=== PATIENT | female | born 1995 | race African-American/Black ===

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

== ENCOUNTER 2017-02-26 21:52 | Emergency (ER) | payer MEDICAID, OTHER ==
[2017-02-26 22:16] VITALS: BP 144/94
[2017-02-26] MEDS ORDERED: Lactated Ringers 1,000 ML IV ONE (22:33)
--- NOTE | 2017-02-26 22:33 | EDM.PDOC ---
ED HPI GENERAL MEDICAL PROBLEM - General Chief Complaint: Abdominal Pain Stated Complaint: FELL/5 MO PREGNENT Time Seen by Provider: 02/26/17 22:25 - History of Present Illness INITIAL COMMENTS - FREE TEXT/NARRATIVE: 22-year-old female nearly 20 weeks gestation fell yesterday. Patient fell yesterday evening going up some steps landing on her right side she has a worsening right-sided abdominal and back pain. She's used 2 or 3 doses of Tylenol without much success. Prior to the fall by several weeks the patient has been developing some intermittent nausea and vomiting. This is not associated with any abdominal pain diarrhea or constipation. Patient denies any other injuries associated with this fall she has not had any difficulty with ambulation. Patient has not had any breathing difficulty shortness of breath she denies any burning or frequency with urination no unusual discharge. She has not had any cramping or contractions. Right Abdomen Pain Score (Numeric/FACES): 6 - Related Data Allergies Allergy/AdvReac Type Severity Reaction Status Date / Time aspirin Allergy Anaphylactic Verified 12/30/16 21:00 Shock pollen extracts Allergy Swelling Verified 12/30/16 21:00 Home Meds: Home Meds Albuterol Sulfate [Proair Hfa] 8.5 gm IH Q6H PRN 04/12/16 [History] EPINEPHrine [Epipen] 0.3 mg IM ASDIRECTED 04/12/16 [History] Montelukast [Singulair] 10 mg PO BEDTIME PRN 04/12/16 [History] Loratadine [Claritin] 10 mg PO DAILY PRN 06/18/16 [History] Ondansetron [Zofran ODT] 4 mg PO Q6H #10 tab.dis 09/06/16 [Rx] PNV95/Ferrous Fumarate/FA [ Tablet] 1 tab PO DAILY 02/26/17 [History] Ondansetron [Zofran ODT] 4 mg PO Q8H PRN #10 tab.dis 02/27/17 [Rx] Past Medical History HEENT History: Reports: Allergic Rhinitis Cardiovascular History: Reports: Cardiomyopathy Other Cardiovascular History: pt states "I have a bad heart." Respiratory History: Reports: Asthma Other Respiratory History: Allergies Gastrointestinal History: Reports: GERD 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: Psychiatric History: Reports: ADD Endocrine/Metabolic History: Reports: Obesity/BMI 30+ - Past Surgical History Cardiovascular Surgical History: Reports: Other (See Below) GI Surgical History: Reports: Cholecystectomy, EGD Female Surgical History: Reports: None Social & Family History - Tobacco Use Smoking Status *Q: Never Smoker Years of Tobacco use: 2 Packs/Tins Daily: 0.2 Used Tobacco, but Quit: No Second Hand Smoke Exposure: Yes - Caffeine Use Caffeine Use: Reports: None Other Caffeine Use: rarely - Alcohol Use Days Per Week of Alcohol Use: 1 (occasionally) - Recreational Drug Use Recreational Drug Use: No Drug Use in Last 12 Months: No - Living Situation & Occupation Living situation: Reports: Single, with Significant Other Occupation: Unemployed ED ROS GENERAL - Review of Systems Review Of Systems: See Below Constitutional: Reports: No Symptoms HEENT: Reports: No Symptoms Respiratory: Reports: No Symptoms Cardiovascular: Reports: No Symptoms GI/Abdominal: Reports: Abdominal Pain (Right-sided), Nausea, Vomiting. Denies: Constipation, Diarrhea : Reports: No Symptoms. Denies: Dysuria, Flank Pain, Hematuria, Pain, Urgency , Urinary Retention Musculoskeletal: Reports: Back Pain Neurological: Reports: No Symptoms ED EXAM, GENERAL - Physical Exam Exam: See Below Exam Limited By: No Limitations General Appearance: Alert, No Apparent Distress Head: Atraumatic, Normocephalic Neck: Normal Inspection, Supple, Non-Tender, Full Range of Motion Respiratory/Chest: No Respiratory Distress, Lungs Clear, Normal Breath Sounds Cardiovascular: Regular Rate, Rhythm, No Edema, No Murmur GI/Abdominal: Normal Bowel Sounds, Soft, Other (She has no discomfort between the suprapubic area and the umbilicus she has some vague right-sided discomfort seems to be more abdominal wall no rebound or guarding noted) Back Exam: Normal Inspection, Other (Has some vague right and left sided discomfort no vertebral tenderness) Extremities: Normal Inspection, No Pedal Edema Neurological: Alert, Oriented, Normal Cognition Course - Vital Signs Last Recorded V/S: Last Vital Signs Temp 36.7 C 02/26/17 22:13 Pulse 85 02/26/17 22:13 Resp 20 02/26/17 22:13 BP 144/94 H 02/26/17 22:13 Pulse Ox 100 02/26/17 22:13 - Orders/Labs/Meds Labs: Laboratory Tests 02/26/17 02/26/17 02/26/17 Range/Units 21:15 22:50 22:50 WBC 7.13 (3.98-10.04) K/mm3 RBC 3.70 L (3.98-5.22) M/mm3 Hgb 11.9 (11.2-15.7) gm/L Hct 34.5 (34.1-44.9) % MCV 93.2 (79.4-94.8) fl MCH 32.2 (25.6-32.2) pg MCHC 34.5 (32.2-35.5) g/dl RDW Std Deviation 45.0 (36.4-46.3) fL Plt Count 297 (182-369) K/mm3 MPV 9.9 (9.4-12.3) fl Neutrophils % (Manual) 54 (40-60) % Band Neutrophils % 0 (0-10) % Lymphocytes % (Manual) 28 (20-40) % Atypical Lymphs % 3 % Monocytes % (Manual) 10 (2-10) % Eosinophils % (Manual) 4 (0.7-5.8) % Basophils % (Manual) 0 L (0.1-1.2) Metamyelocytes % 1 Platelet Estimate Adequate Plt Morphology Comment See note Poikilocytosis 1+ slight Anisocytosis 1+ slight Microcytosis 1+ slight Macrocytosis 1+ slight Tear Drop Cells 1+ slight RBC Morph Comment Abnormal Sodium 137 (136-145) mEq/L Potassium 4.0 (3.5-5.1) mEq/L Chloride 105 (98-107) mEq/L Carbon Dioxide 25 (21-32) mEq/L Anion Gap 11.0 (5-15) BUN 7 (7-18) mg/dL Creatinine 0.6 (0.55-1.02) mg/dL Est Cr Clr Drug Dosing 112.86 mL/min Estimated GFR (MDRD) > 60 (>60) mL/min BUN/Creatinine Ratio 11.7 L (14-18) Glucose 90 (74-106) mg/dL Calcium 8.8 (8.5-10.1) mg/dL Total Bilirubin 0.3 (0.2-1.0) mg/dL AST 35 (15-37) U/L ALT 39 (14-59) U/L Alkaline Phosphatase 70 (46-116) U/L Total Protein 6.7 (6.4-8.2) g/dl Albumin 3.0 L (3.4-5.0) g/dl Globulin 3.7 gm/dL Albumin/Globulin Ratio 0.8 L (1-2) Urine Color Yellow (Yellow) Urine Appearance Clear (Clear) Urine pH 7.0 (5.0-8.0) Ur Specific [place] 1.025 (1.005-1.030) Urine Protein 1+ H (Negative) Urine Glucose (UA) Negative (Negative) Urine Ketones Negative (Negative) Urine Occult Blood Negative (Negative) Urine Nitrite Negative (Negative) Urine Bilirubin Negative (Negative) Urine Urobilinogen 2.0 H (0.2-1.0) Ur Leukocyte Esterase Trace H (Negative) Urine RBC 0-5 (0-5) /hpf Urine WBC 0-5 (0-5) /hpf Ur Epithelial Cells 5-10 H (0-5) /hpf Urine Bacteria Many H (FEW) /hpf Urine Mucus Many H (FEW) /hpf Meds: Medications Discontinued Medications Generic Name Dose Route Start Last Admin Trade Name Job PRN Reason Stop Dose Admin Lactated Ringer's 1,000 mls @ 999 mls/hr 02/26/17 22:33 02/26/17 23:11 Ringers, Lactated IV 02/26/17 23:33 999 mls/hr .BOLUS ONE Administration Ondansetron HCl 4 mg 02/26/17 23:09 02/26/17 23:12 Zofran IVPUSH 02/26/17 23:10 4 mg ONETIME STA Administration Ondansetron HCl Confirm 02/26/17 23:11 02/26/17 23:12 Zofran Administered 02/26/17 23:12 Not Given Dose 4 mg .ROUTE .STK-MED ONE - Re-Assessments/Exams Free Text/Narrative Re-Assessment/Exam: 02/27/17 00:07 Patient is doing better she's received a liter of fluid some Zofran. She's been asked to continue with the Tylenol as needed for pain she's been using it 3 times a day however it doesn't workup at well for her. It doesn't she's having some intermittent nausea and vomiting developing a little late her than one would expect. We'll discharge with a few Zofran. Departure - Departure Time of Disposition: 00:08 Disposition: Home, Self-Care 01 Clinical Impression: Back pain affecting in second trimester, Right sided abdominal pain - Discharge Information Prescriptions: Ondansetron [Zofran ODT] 4 mg PO Q8H PRN #10 tab.dis PRN Reason: Nausea/Vomiting Referrals: Elba Siegel MD [Primary Care Provider] - Forms: ED Department Discharge Additional Instructions: Return to the emergency room with any questions or problems. Push lots of fluids. You've been given some Zofran as needed for nausea use only as needed as directed. Tylenol no more than 4 daily doses of 2 pills per dose. Followup with Dr. Siegel early this next week.
[2017-02-26] MEDS ORDERED: Ondansetron 4 MG/2 ML SDV IVPUSH STA (23:09)
[2017-02-26] MEDS ORDERED: Ondansetron 4 MG/2 ML SDV ONE (23:11)
== END 2017-02-27 00:15 | disposition home or self-care (01) ==
LOC: SUPCPDRO 21:52 → JD.ED 21:52
DX: O99.89 Other specified diseases and conditions complicating pregnancy, childbirth and the puerperium (principal); M54.9 Dorsalgia, unspecified; R10.9 Unspecified abdominal pain; O99.512 Diseases of the respiratory system complicating pregnancy, second trimester; J45.909 Unspecified asthma, uncomplicated; O99.612 Diseases of the digestive system complicating pregnancy, second trimester; K21.9 Gastro-esophageal reflux disease without esophagitis; O99.212 Obesity complicating pregnancy, second trimester; E66.9 Obesity, unspecified; Z90.49 Acquired absence of other specified parts of digestive tract; Z79.899 Other long term (current) drug therapy; Z88.6 Allergy status to analgesic agent; Z3A.20 20 weeks gestation of pregnancy
CPT/HCPCS: 36415; 80053; 81001; 85025; 96361; 96374; 99284; J2405; J7120

== ENCOUNTER 2017-06-17 15:22 | Inpatient (IN) | payer MEDICAID ==
[2017-06-17] MEDS ORDERED: Acetaminophen 325 MG Tab PO PRN (19:07)
[2017-06-17] MEDS ORDERED: Famotidine 20 MG Tab PO PRN (19:07)
[2017-06-17] MEDS ORDERED: Calcium Carbonate 500 MG Tab.Chew PO PRN (19:07)
[2017-06-17] MEDS ORDERED: Ondansetron 4 MG/2 ML SDV IVPUSH PRN ×2 (19:07→23:42)
[2017-06-17] MEDS ORDERED: Sodium Chloride 0.9% 10 ML Syringe FLUSH PRN ×2 (19:07→19:18)
[2017-06-17] MEDS ORDERED: Calcium Gluconate 10% 1 GM/10 ML SDV IV PRN (19:12)
[2017-06-17] MEDS ORDERED: Magnesium Sulfate/Water 4 GM in Premix Bag 1 BAG IV ONE (19:12)
[2017-06-17] MEDS ORDERED: Magnesium Sulfate/Water 2 GM in Premix Bag 1 BAG IV SCH (19:15)
[2017-06-17] MEDS ORDERED: Oxytocin/Lactated Ringers 10 UNIT/1,000 ML BAG IV SCH (19:15)
[2017-06-17] MEDS ORDERED: Lactated Ringers 1,000 ML IV SCH (19:15)
[2017-06-17] MEDS ORDERED: Misoprostol 100 MCG Tab VAG PRN (19:18)
--- NOTE | 2017-06-17 19:21 | PCM.SN ---
- Free Text/Narrative Note: Antoni&Catarino Noland is a 22 [id number] female who was admitted for induction of labor in the setting of preeclampsia with severe features with severe range blood pressures requiring IV medication treatment on 06/17/2017 at 35 2/7 gestational age. She had an LUZ MARINA of 07/21/2017 by 6 week ultrasound. Cervix is 1/ 40/-3/medium/anterior with a Matos score of 5. She is having irregular [place] contractions. She denies any leaking of fluid or vaginal bleeding. She reports good movement course: Her first visit was 12/01/2016 at 6 weeks gestational age. Her weight increased from 244 lbs to 249 lbs, for a gain of 5 lbs. she had her first elevated pressures at 34 weeks gestational age and was given betamethasone 2 at that time.. Her 1 hr GTT was normal at 90. lab testing: Her blood is type B positive, antibody screen negative. Initial hemoglobin was 12.8 g/dl and platelets were 321. She is rubella immune. Hepatitis B and HIV were negative. Second trimester showed hemoglobin of 13.1 g/ dl and platelets of 267. She had a ultrasound done on 06/10/17 that showed possible IUGR with before meals less than the 10th percentile at 8%, estimated weight was 2090 g (40%), AUA was 33 weeks 4 days. GBS testing not collected prior to this visit. Allergies: Aspirin - anaphylaxis; Percocet with minimal pain relief Medications: vitamins, Flonase, Advair Past medical history: GERD, asthma that she reports is well controlled and has not required use of rescue inhaler during the last month, history of cardiac problem as a child and was told she would "grow out of it" and is not being followed by cardiology at this time Past surgical history: Cholecystectomy in 09/06/2016, LUZ MARINA 07/14/2016, heart biopsy 2004 Family history: Asthma in mother and father, cardiomyopathy in mother, maternal great grandmother with stomach cancer, sickle cell anemia in cousin, sickle cell trait in maternal uncle, throat cancer in maternal grandmother and maternal grandfather, brother and 2 sisters healthy Social history: Denies use of alcohol or drugs. Reports that she has previous history of cigarette use but stopped once she was . ROS: No other concerns other than nausea. Skin: negative HEENT: negative Lungs: no shortness of breath Cardiovascular: no chest pain Breasts: changes associated with only GI: negative : changes associated with Neuro: negative Musculoskeletal: negative Physical exam: Vitals Pulse 67, blood pressure 182/109, respiratory rate 22, temperature 36.8 Celsius General: patient is a well-developed, obese, pleasant female in active labor with contractions. She is uncomfortable due to the contractions. Skin: dry, warm, no lesions HEENT: neck is normal Lungs: Unlabored breathing Cardiovascular: Regular pulse Breast exam: deferred Abdomen: Gravid, estimated weight 6 pounds by Serge but difficult to assess due to body habitus Musculoskeletal: normal Laboratory Results - last 24 hr 06/17/17 06/17/17 06/17/17 Range/Units 15:45 17:09 17:09 WBC 8.24 (3.98-10.04) K/mm3 RBC 4.45 (3.98-5.22) M/mm3 Hgb 14.3 (11.2-15.7) gm/L Hct 41.1 (34.1-44.9) % MCV 92.4 (79.4-94.8) fl MCH 32.1 (25.6-32.2) pg MCHC 34.8 (32.2-35.5) g/dl RDW Std Deviation 43.7 (36.4-46.3) fL Plt Count 212 (182-369) K/mm3 MPV 10.6 (9.4-12.3) fl Neut % (Auto) 57.1 (34.0-71.1) % Lymph % (Auto) 29.4 (19.3-51.7) % [place] % (Auto) 12.7 H (4.7-12.5) % Eos % (Auto) 0.2 L (0.7-5.8) Baso % (Auto) 0.2 (0.1-1.2) % Neut # (Auto) 4.70 (1.56-6.13) K/mm3 Lymph # (Auto) 2.42 (1.18-3.74) K/mm3 [place] # (Auto) 1.05 H (0.24-0.36) K/mm3 Eos # (Auto) 0.02 L (0.04-0.36) K/mm3 Baso # (Auto) 0.02 (0.01-0.08) K/mm3 BUN 7 (7-18) mg/dL Creatinine 0.7 (0.55-1.02) mg/dL Est Cr Clr Drug Dosing 96.74 mL/min Estimated GFR (MDRD) > 60 (>60) mL/min Uric Acid 5.5 (2.6-6.0) mg/dL AST 18 (15-37) U/L ALT 23 (14-59) U/L Lactate Dehydrogenase 250 H (81-234) U/L Urine Color Yellow (Yellow) Urine Appearance Cloudy H (Clear) Urine pH 6.5 (5.0-8.0) Ur Specific [place] 1.020 (1.005-1.030) Urine Protein 1+ H (Negative) Urine Glucose (UA) Negative (Negative) Urine Ketones Negative (Negative) Urine Occult Blood Negative (Negative) Urine Nitrite Negative (Negative) Urine Bilirubin Negative (Negative) Urine Urobilinogen 0.2 (0.2-1.0) Ur Leukocyte Esterase 2+ H (Negative) Urine RBC 0-5 (0-5) /hpf Urine WBC 5-10 H (0-5) /hpf Ur Epithelial Cells 0-5 (0-5) /hpf Urine Bacteria Moderate H (FEW) /hpf Urine Mucus Few (FEW) /hpf Assessment: 1. 35 2/7 week intrauterine with preeclampsia with severe features based on severe range blood pressures requiring IV treatment, elevated LDH, 1+ protein on urinalysis, suspect patient becoming hemoconcentrated based on hemoglobin of 14.3 when compared to her second trimester hemoglobin that was 12 2. GBS unknown 3. Epidural for pain 4. Elevated blood pressures throughout monitoring into severe range and will treat as needed 5. Patient has previously received betamethasone approximately 1 week ago, do not plan for rescue course at this time. Plan: 1. Anticipate normal vaginal delivery 2. Continue close monitoring of blood pressures. Will treat if having severe sustained blood pressures of greater than 160 systolic or 110 diastolic that are 15 minutes apart. 3. Start patient on magnesium IV 4 g bolus then 2 g IV per hour for seizure prophylaxis 4. Epidural when necessary for pain 5. Routine care 6. GBS swab collected and will plan to treat for possible GBS if results unavailable or if positive. Patient would be indicated for treatment due to prematurity if results unavailable. Job Babb MD 8:05 PM 06/17/17
[2017-06-17] MEDS ORDERED: Magnesium Sulfate/Water 40 GM/1,000 ML BAG IV SCH (19:30)
[2017-06-17] MEDS: Labetalol 100 MG/20 ML MDV IVPUSH ONE ×2 (19:34→19:50)
[2017-06-17] MEDS ORDERED: Misoprostol 25 MCG (1/4 of 100 MCG) Tab ONE (20:19)
[2017-06-17] MEDS: Misoprostol 25 MCG (1/4 of 100 MCG) Tab VAG PRN (20:27)
--- NOTE | 2017-06-17 23:36 | PCM.PREANE ---
Preanesthetic Assessment - Procedure Proposed Procedure: Labor Epidural - Anesthesia/Transfusion/Family Hx Anesthesia History: Prior Anesthesia Without Reaction Family History of Anesthesia Reaction: No Transfusion History: No Prior Transfusion(s) Type of Transfusion Reactions: Reports: Unknown - Review of Systems General: No Symptoms Pulmonary: No Symptoms Cardiovascular: Other (PIH) Gastrointestinal: Other (GERD) Neurological: No Symptoms Other: Reports: None - Physical Assessment NPO Status Date: 06/17/17 NPO Status Time: 23:00 Pulse: 85 O2 Sat by Pulse Oximetry: 98 Respiratory Rate: 22 Blood Pressure: 160/106 Vital Signs: Last Vital Signs Temp 36.8 C 06/17/17 16:07 Pulse 85 06/17/17 23:01 Resp 22 H 06/17/17 16:07 BP 160/106 H 06/17/17 23:01 Pulse Ox 98 06/17/17 16:07 Height: 1.55 m Weight: 105.687 kg ASA Class: 2 Mental Status: Alert & Oriented x3 Thyro-Mental Finger Breadths: 3 Mouth Opening Finger Breadths: 3 ROM/Head Extension: Full Lungs: Clear to Auscultation, Normal Respiratory Effort Cardiovascular: Regular Rate, Regular Rhythm - Lab Values: Laboratory Last Values WBC 8.24 K/mm3 (3.98-10.04) 06/17/17 17:09 RBC 4.45 M/mm3 (3.98-5.22) 06/17/17 17:09 Hgb 14.3 gm/L (11.2-15.7) 06/17/17 17:09 Hct 41.1 % (34.1-44.9) 06/17/17 17:09 MCV 92.4 fl (79.4-94.8) 06/17/17 17:09 MCH 32.1 pg (25.6-32.2) 06/17/17 17:09 MCHC 34.8 g/dl (32.2-35.5) 06/17/17 17:09 RDW Std Deviation 43.7 fL (36.4-46.3) 06/17/17 17:09 Plt Count 212 K/mm3 (182-369) 06/17/17 17:09 MPV 10.6 fl (9.4-12.3) 06/17/17 17:09 Neut % (Auto) 57.1 % (34.0-71.1) 06/17/17 17:09 Lymph % (Auto) 29.4 % (19.3-51.7) 06/17/17 17:09 [place] % (Auto) 12.7 % (4.7-12.5) H 06/17/17 17:09 Eos % (Auto) 0.2 (0.7-5.8) L 06/17/17 17:09 Baso % (Auto) 0.2 % (0.1-1.2) 06/17/17 17:09 Neut # (Auto) 4.70 K/mm3 (1.56-6.13) 06/17/17 17:09 Lymph # (Auto) 2.42 K/mm3 (1.18-3.74) 06/17/17 17:09 [place] # (Auto) 1.05 K/mm3 (0.24-0.36) H 06/17/17 17:09 Eos # (Auto) 0.02 K/mm3 (0.04-0.36) L 06/17/17 17:09 Baso # (Auto) 0.02 K/mm3 (0.01-0.08) 06/17/17 17:09 BUN 7 mg/dL (7-18) 06/17/17 17:09 Creatinine 0.7 mg/dL (0.55-1.02) 06/17/17 17:09 Est Cr Clr Drug Dosing 96.74 mL/min 06/17/17 17:09 Estimated GFR (MDRD) > 60 mL/min (>60) 06/17/17 17:09 Uric Acid 5.5 mg/dL (2.6-6.0) 06/17/17 17:09 AST 18 U/L (15-37) 06/17/17 17:09 ALT 23 U/L (14-59) 06/17/17 17:09 Lactate Dehydrogenase 250 U/L (81-234) H 06/17/17 17:09 Urine Color Yellow (Yellow) 06/17/17 15:45 Urine Appearance Cloudy (Clear) H 06/17/17 15:45 Urine pH 6.5 (5.0-8.0) 06/17/17 15:45 Ur Specific [place] 1.020 (1.005-1.030) 06/17/17 15:45 Urine Protein 1+ (Negative) H 06/17/17 15:45 Urine Glucose (UA) Negative (Negative) 06/17/17 15:45 Urine Ketones Negative (Negative) 06/17/17 15:45 Urine Occult Blood Negative (Negative) 06/17/17 15:45 Urine Nitrite Negative (Negative) 06/17/17 15:45 Urine Bilirubin Negative (Negative) 06/17/17 15:45 Urine Urobilinogen 0.2 (0.2-1.0) 06/17/17 15:45 Ur Leukocyte Esterase 2+ (Negative) H 06/17/17 15:45 Urine RBC 0-5 /hpf (0-5) 06/17/17 15:45 Urine WBC 5-10 /hpf (0-5) H 06/17/17 15:45 Ur Epithelial Cells 0-5 /hpf (0-5) 06/17/17 15:45 Urine Bacteria Moderate /hpf (FEW) H 06/17/17 15:45 Urine Mucus Few /hpf (FEW) 06/17/17 15:45 - Allergies Allergies/Adverse Reactions: Allergies Allergy/AdvReac Type Severity Reaction Status Date / Time aspirin Allergy Anaphylactic Verified 12/30/16 21:00 Shock pollen extracts Allergy Swelling Verified 12/30/16 21:00 - Blood Blood Available: No Product(s) Available: None - Anesthesia Plan Pre-Op Medication Ordered: None - Acknowledgements Anesthesia Type Planned: Epidural Pt an Appropriate Candidate for the Planned Anesthesia: Yes Alternatives and Risks of Anesthesia Discussed w Pt/Guardian: Yes Pt/Guardian Understands and Agrees with Anesthesia Plan: Yes PreAnesthesia Questionnaire HEENT History: Reports: Allergic Rhinitis Cardiovascular History: Reports: Cardiomyopathy Other Cardiovascular History: pt states "I have a bad heart." Respiratory History: Reports: Asthma Other Respiratory History: Allergies Gastrointestinal History: Reports: GERD 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: Psychiatric History: Reports: ADD Endocrine/Metabolic History: Reports: Obesity/BMI 30+ - Past Surgical History Cardiovascular Surgical History: Reports: Other (See Below) GI Surgical History: Reports: Cholecystectomy, EGD Female Surgical History: Reports: None - SUBSTANCE USE Smoking Status *Q: Never Smoker Tobacco Use Within Last Twelve Months: Cigarettes Second Hand Smoke Exposure: Yes Days Per Week of Alcohol Use: 1 (occasionally) Recreational Drug Use History: No - HOME MEDS Home Medications: Home Meds Albuterol Sulfate [Proair Hfa] 8.5 gm IH Q6H PRN 04/12/16 [History] EPINEPHrine [Epipen] 0.3 mg IM ASDIRECTED 04/12/16 [History] Montelukast [Singulair] 10 mg PO BEDTIME PRN 04/12/16 [History] Loratadine [Claritin] 10 mg PO DAILY PRN 06/18/16 [History] Ondansetron [Zofran ODT] 4 mg PO Q6H #10 tab.dis 09/06/16 [Rx] PNV95/Ferrous Fumarate/FA [ Tablet] 1 tab PO DAILY 02/26/17 [History] Ondansetron [Zofran ODT] 4 mg PO Q8H PRN #10 tab.dis 02/27/17 [Rx] Capsaicin 0.035 applic TOP ASDIRECTED PRN 06/17/17 [History] Cyclobenzaprine [Flexeril] 10 mg PO TID PRN 06/17/17 [History] Esomeprazole Magnesium [Nexium] 40 mg PO DAILY 06/17/17 [History] Fluticasone Propionate [Flonase] 1 gm NASBOTH DAILY 06/17/17 [History] Fluticasone/Salmeterol [Advair Diskus 100-50] 1 puff PO BID PRN 06/17/17 [ History] Mag Hydrox/Al Hydrox/Simeth [Maalox Maximum Strength Susp] 06/17/17 [History] Nystatin 1 applic TOP TID PRN 06/17/17 [History] Triamcinolone Acetonide [IJD: Triamcinolone Acetonide 0.1% Crm] 0.025 applic TOP ASDIRECTED PRN 06/17/17 [History] - CURRENT (IN HOUSE) MEDS Current Meds: Current Medications Acetaminophen (Tylenol) 650 mg PO Q6H PRN PRN Reason: Pain (Mild 1-3) and fever Calcium Carbonate/Glycine (Tums) 1,000 mg PO Q2H PRN PRN Reason: Indigestion Calcium Gluconate (Calcium Gluconate) 1 gm IV ASDIRECTED PRN PRN Reason: respiratory distress Famotidine (Pepcid) 20 mg PO Q12H PRN PRN Reason: Heartburn Last Admin: 06/17/17 20:14 Dose: 20 mg Lactated Ringer's (Ringers, Lactated) 1,000 mls @ 100 mls/hr IV ASDIRECTED [facility] Oxytocin/Lactated Ringer's (Pitocin In Lr 10 Units/1,000 Ml) 10 unit in 1,000 mls @ 100 mls/hr IV .CONTINUOUS [facility] Magnesium Sulfate (Magnesium Sulfate 40 Gm In Water 1000 Ml) 40 gm in 1,000 mls @ 50 mls/hr IV ASDIRECTED [facility] Last Admin: 06/17/17 20:14 Dose: 50 mls/hr Misoprostol (Cytotec) 25 mcg VAG Q4H PRN PRN Reason: cervical ripening Last Admin: 06/17/17 20:27 Dose: 25 mcg Ondansetron HCl (Zofran) 4 mg IVPUSH Q4H PRN PRN Reason: Nausea/Vomiting Sodium Chloride (Saline Flush) 10 ml FLUSH ASDIRECTED PRN PRN Reason: Keep Vein Open Sodium Chloride (Saline Flush) 10 ml FLUSH ASDIRECTED PRN PRN Reason: Keep Vein Open Discontinued Medications Magnesium Sulfate 4 gm/ Premix 100 mls @ 300 mls/hr IV ONETIME ONE Stop: 06/17/17 19:31 Last Admin: 06/17/17 19:45 Dose: 300 mls/hr Magnesium Sulfate 2 gm/ Premix 50 mls @ 300 mls/hr IV Q1H [facility] Last Admin: 06/17/17 21:59 Dose: Not Given Labetalol HCl (Normodyne) 20 mg IVPUSH ONETIME ONE PRN Reason: Protocol Stop: 06/17/17 19:08 Last Admin: 06/17/17 19:50 Dose: 20 mg Misoprostol (Cytotec) 25 mcg VAG Q4H PRN PRN Reason: cervical ripening Misoprostol (Cytotec) Confirm Administered Dose 25 mcg .ROUTE .STK-MED ONE Stop: 06/17/17 20:20 Last Admin: 06/17/17 21:56 Dose: Not Given
[2017-06-17] MEDS ORDERED: fentaNYL 100 MCG/2 ML SDV EPIDUR PRN (23:42)
[2017-06-17] MEDS ORDERED: diphenhydrAMINE 50 MG/ML SDV IVPUSH PRN (23:42)
[2017-06-17] MEDS ORDERED: Bupivacaine/fentaNYL/NS 100 ML Bag EPIDUR SCH (23:45)
[2017-06-18] MEDS ORDERED: Pneumococcal Polyvalent-23 Vaccine 0.5 ML SDV IM ONE (00:07)
[2017-06-18] MEDS ORDERED: FLU Vacc QS 2017-18 (6mos UP)/PF 60 MCG/0.5 ML Syringe IM ONE (00:15)
[2017-06-18] MEDS: Misoprostol 25 MCG (1/4 of 100 MCG) Tab VAG PRN ×2 (00:48→04:56)
[2017-06-18] MEDS ORDERED: Labetalol 100 MG/20 ML MDV IVPUSH ONE ×5 (05:21→16:32)
[2017-06-18] MEDS ORDERED: NIFEdipine 30 MG Tab.ER PO SCH (05:30)
[2017-06-18] MEDS ORDERED: Oxytocin/Lactated Ringers 10 UNIT/1,000 ML BAG IV SCH ×2 (08:30→15:43)
[2017-06-18] MEDS ORDERED: Bupivacaine 0.5% 30 ML SDV ONE (12:23)
[2017-06-18] MEDS ORDERED: ceFAZolin 2 GM in Premix Bag 1 BAG IV ONE (12:27)
[2017-06-18] MEDS ORDERED: Citric Acid/Sodium Citrate Solution 30 ML Cup PO ONE (12:27)
[2017-06-18] MEDS ORDERED: Metoclopramide 10 MG/2 ML SDV IVPUSH ONE (12:27)
[2017-06-18] MEDS ORDERED: Sodium Chloride 0.9% 10 ML Syringe FLUSH PRN ×2 (12:27→15:43)
[2017-06-18] MEDS ORDERED: Lactated Ringers 1,000 ML IV SCH ×3 (12:30→20:30)
--- NOTE | 2017-06-18 12:39 | PCM.PNLD ---
Labor Progress Note - VS & Meds Vital Signs: Last Vital Signs Temp 36.8 C 06/17/17 16:07 Pulse 80 06/18/17 05:57 Resp 22 H 06/17/17 23:36 BP 163/103 H 06/18/17 05:57 Pulse Ox 98 06/17/17 23:36 Active Medications: Current Medications Acetaminophen (Tylenol) 650 mg PO Q6H PRN PRN Reason: Pain (Mild 1-3) and fever Calcium Carbonate/Glycine (Tums) 1,000 mg PO Q2H PRN PRN Reason: Indigestion Calcium Gluconate (Calcium Gluconate) 1 gm IV ASDIRECTED PRN PRN Reason: respiratory distress Diphenhydramine HCl (Benadryl) 25 mg IVPUSH Q6H PRN PRN Reason: Pruritis Famotidine (Pepcid) 20 mg PO Q12H PRN PRN Reason: Heartburn Last Admin: 06/17/17 20:14 Dose: 20 mg Fentanyl (Sublimaze) 100 mcg EPIDUR Q3H PRN PRN Reason: Pain Last Admin: 06/18/17 11:02 Dose: 100 mcg Fentanyl/Bupivacaine HCl (Fentanyl/Bupivacaine/Ns 2 Mcg-0.125% 100 Ml) 100 ml EPIDUR ASDIRECTED [facility]IA DOLORES Last Admin: 06/18/17 11:03 Dose: 100 ml Lactated Ringer's (Ringers, Lactated) 1,000 mls @ 100 mls/hr IV ASDIRECTED [facility] DOLORES Last Infusion: 06/18/17 11:18 Dose: 200 mls/hr Oxytocin/Lactated Ringer's (Pitocin In Lr 10 Units/1,000 Ml) 10 unit in 1,000 mls @ 100 mls/hr IV .CONTINUOUS [facility] Magnesium Sulfate (Magnesium Sulfate 40 Gm In Water 1000 Ml) 40 gm in 1,000 mls @ 50 mls/hr IV ASDIRECTED MARIA DOLORES Last Admin: 06/17/17 20:14 Dose: 50 mls/hr Oxytocin/Lactated Ringer's (Pitocin In Lr 10 Units/1,000 Ml) 10 unit in 1,000 mls @ 12 mls/hr IV TITRATE MARIA DOLORES; 2 MUNITS/MIN PRN Reason: Protocol Last Titration: 06/18/17 11:22 Dose: 0 munits/min, 0 mls/hr Nifedipine (Procardia Xl) 30 mg PO DAILY MARIA DOLORES Last Admin: 06/18/17 05:33 Dose: 30 mg Ondansetron HCl (Zofran) 4 mg IVPUSH Q4H PRN PRN Reason: Nausea/Vomiting Ondansetron HCl (Zofran) 4 mg IVPUSH ONETIME PRN PRN Reason: Nausea/Vomiting Sodium Chloride (Saline Flush) 10 ml FLUSH ASDIRECTED PRN PRN Reason: Keep Vein Open Sodium Chloride (Saline Flush) 10 ml FLUSH ASDIRECTED PRN PRN Reason: Keep Vein Open Discontinued Medications Magnesium Sulfate 4 gm/ Premix 100 mls @ 300 mls/hr IV ONETIME ONE Stop: 06/17/17 19:31 Last Admin: 06/17/17 19:45 Dose: 300 mls/hr Magnesium Sulfate 2 gm/ Premix 50 mls @ 300 mls/hr IV Q1H [facility] Last Admin: 06/17/17 21:59 Dose: Not Given Labetalol HCl (Normodyne) 20 mg IVPUSH ONETIME ONE PRN Reason: Protocol Stop: 06/17/17 19:08 Last Admin: 06/17/17 19:50 Dose: 20 mg Labetalol HCl (Normodyne) 20 mg IVPUSH ONETIME ONE PRN Reason: Protocol Stop: 06/18/17 05:22 Last Admin: 06/18/17 05:29 Dose: 20 mg Labetalol HCl (Normodyne) 40 mg IVPUSH ONETIME ONE PRN Reason: Protocol Stop: 06/18/17 05:55 Last Admin: 06/18/17 05:57 Dose: 40 mg Labetalol HCl (Normodyne) 20 mg IVPUSH ONETIME ONE PRN Reason: Protocol Stop: 06/18/17 10:25 Misoprostol (Cytotec) 25 mcg VAG Q4H PRN PRN Reason: cervical ripening Misoprostol (Cytotec) Confirm Administered Dose 25 mcg .ROUTE .STK-MED ONE Stop: 06/17/17 20:20 Last Admin: 06/17/17 21:56 Dose: Not Given Misoprostol (Cytotec) 25 mcg VAG Q4H PRN PRN Reason: cervical ripening Last Admin: 06/18/17 04:56 Dose: 25 mcg Morphine Sulfate (Duramorph Pf) Confirm Administered Dose 10 mg .ROUTE .STK-MED ONE Stop: 06/18/17 12:42 Ondansetron HCl (Zofran) Confirm Administered Dose 4 mg .ROUTE .STK-MED ONE Stop: 06/18/17 12:42 Oxytocin (Pitocin) Confirm Administered Dose 10 unit .ROUTE .STK-MED ONE Stop: 06/18/17 12:42 Pneumococcal Polyvalent Vaccine (Pneumovax 23) 0.5 ml IM .ONCE ONE Stop: 06/18/17 00:08 - Uterine Contractions Uterine Monitoring Mode: IUPC Contraction Frequency (min): 2 Contraction Intensity: Strong Uterine Resting Tone: Soft - Monitoring Monitor Mode: External Ultrasound Heart Rate (FHR) Baseline: 120 Heart Rate (FHR) Variability: Minimal (0-5 bpm) Accelerations: Present, 15x15 Decelerations: Late, Recurrent (>50% x 20 min) Strip Review: Category III - Vaginal Exam Dilation (cm): 3 Effacement (Percent): 80 Station: -2 Cervical Position: Anterior Sterile Vaginal Exam Performed By: Job Babb - Labor Progress (Free Text) Labor Progress: Patient with recurrent late decelerations on monitoring after placement of the IUPC and minimal variability. Patient is remote from delivery as a primigravida with a cervical exam of 3/80/-2. Discussed these findings with the patient and gave recommendation that we should move towards urgent delivery and that in her case this would be a section. Discussed the risks and benefits of a section including bleeding, possibly requiring a blood transfusion, infection, and injury to surrounding organs or infant. Patient states understanding and desires to proceed with section. Consents signed and patient prepped for section. Type and screen ordered. Patient to be NPO. Job Babb MD 12:39 PM 06/18/17
[2017-06-18] MEDS ORDERED: Ondansetron 4 MG/2 ML SDV ONE (12:41)
[2017-06-18] MEDS ORDERED: Morphine PF 10 MG/10 ML SDV ONE (12:41)
[2017-06-18] MEDS ORDERED: Oxytocin 10 Units/1 ML SDV ONE ×2 (12:41→13:32)
[2017-06-18] MEDS ORDERED: Lidocaine 2% with EPINEPHrine 1:200,000 20 ML SDV ONE (12:44)
[2017-06-18] MEDS ORDERED: ceFAZolin 1 GM Vial ONE (12:45)
[2017-06-18] MEDS ORDERED: Meperidine PF 50 MG/ML Syringe IVPUSH PRN (13:43)
[2017-06-18] MEDS ORDERED: diphenhydrAMINE 50 MG/ML SDV IVPUSH PRN (13:43)
[2017-06-18] MEDS ORDERED: Ondansetron 4 MG/2 ML SDV IVPUSH PRN (13:43)
--- NOTE | 2017-06-18 14:14 | PCM.POSTAN ---
POST ANESTHESIA ASSESSMENT - MENTAL STATUS Mental Status: Alert, Oriented - VITAL SIGNS Pulse Rate: 68 SaO2: 100 Resp Rate: 20 Blood Pressure: 129/86 Temperature: 36.6 C - RESPIRATORY Respiratory Status: Respiratory Rate WNL, Airway Patent, O2 Saturation Stable, Supplemental Oxygen - CARDIOVASCULAR CV Status: Pulse Rate WNL, Blood Pressure Stable - GASTROINTESTINAL GI Status: No Symptoms - PAIN Pain Score: 0 - POST OP HYDRATION Hydration Status: Adequate & Stable
[2017-06-18] MEDS: fentaNYL 100 MCG/2 ML SDV IVPUSH PRN ×3 (14:25→15:00)
--- NOTE | 2017-06-18 15:07 | PCM.OPNOTE ---
- General Post-Op/Procedure Note Date of Surgery/Procedure: 06/18/17 Operative Procedure(s): Primary section with double layer closure of hysterotomy Findings: Bimanual infant delivered in vertex position at 1320 on 06/18/17. Weight of 4 lbs. 7 oz. Apgars of 8 and 8. Overall normal-appearing placenta. Uterus, tubes and ovaries normal appearing. Pre Op Diagnosis: Nonreassuring heart tones in the setting of recurrent late decelerations with history of preeclampsia with severe features Post-Op Diagnosis: Same Anesthesia Technique: Epidural Primary Surgeon: Job Babb Anesthesia Provider: Jaquan Munoz Farmworker: Vinny Cary Pathology: Placenta sent for pathology Fluid Replacement, Intraop: 800 Output, Urine Amount: 100 EBL in mLs: 700 Complications: None Condition: Good Free Text/Narrative:: Intake & Output 06/17/17 06/18/17 06/18/17 22:59 06:59 14:59 Intake Total 360 Output Total 1800 750 Balance -1800 -390 Procedure in Detail: The patient was seen in labor and delivery room 4 and discussed the findings on monitoring that showed recurrent late decelerations and discussed with her that due to her being remote from delivery with her cervix dilated only to 3 cm and this being her first that the best course of action would be to proceed with section. The risks, benefits and complications were discussed with the patient. The patient desired to proceed with section , appropriate surgical consents were signed. The patient was taken to operating room 1, identified as Nuzhat Garcia and the procedure verified as section. A Time Out was held and the above information confirmed. The patient was prepped and draped in the usual sterile manner with a leftward tilt. A Calderon catheter was inserted. After epidural anesthesia was found to be adequate, a Pfannenstiel skin incision was made and carried down through the subcutaneous tissue to the fascia with the scapel. A fascial incision was made and extended transversely with Hicks scissors. The superior aspect of the fascia was grasped with Yodit clamps and tented upwards, the fascia was from the underlying rectus muscle bluntly and sharply with Hicks scissors. Attention was then turned to the inferior aspect of the fascia in similar fashion and the rectus muscle was dissected off bluntly and sharply with Hicks scissors. The peritoneum was identified and entered bluntly. The bladder blade was inserted and the lower uterine segment was identified. A low transverse uterine incision was made sharply with a scalpel and extended laterally bluntly. The 's head was brought to the uterine incision, the bladder blade was removed and the was delivered atraumatically. A live male was delivered in vertex position at 1320, wt of 4 lbs. 7 oz., APGARS 8 & 8. The nose and mouth were suctioned with bulb suction, cord was clamped and cut and was transferred to the awaiting chili powder mixer, Dr. Kowalski. The placenta was removed intact and appeared normal with a three vessel cord. The uterus was exteriorized. The uterine incision was closed with a running locked suture of 0 vicryl. A second suture of 0 Vicryl was used to obtain excellent hemostasis. The uterus, tubes and ovaries appeared normal. The uterus was returned into the abdominal cavity. The hysterotomy was noted to remain hemostatic inside the abdominal cavity. The fascia was noted to be hemostatic and the fascia was then reapproximated with running sutures of 1 PDS. The subcutaneous tissue was then closed with a running suture of 2-0 chromic. The skin was reapproximated with 4-0 Monocryl and covered with a Prineo dressing. Instrument, sponge, and needle counts were correct prior to the abdominal closure and at the conclusion of the case. Job Babb M.D. 3:06 PM 06/18/17
[2017-06-18] MEDS ORDERED: Aluminum Hydroxide/Magnesium Hydroxide/Simethicone Susp 30 ML Cup PO PRN (15:43)
[2017-06-18] MEDS ORDERED: Calcium Gluconate 10% 1 GM/10 ML SDV IV PRN (15:43)
[2017-06-18] MEDS ORDERED: Ondansetron 4 MG/2 ML SDV IV PRN (15:43)
[2017-06-18] MEDS ORDERED: Naloxone 0.4 MG/ML SDV IVPUSH PRN (15:43)
[2017-06-18] MEDS ORDERED: Magnesium Hydroxide 400 MG/5 ML Susp 30 ML Cup PO PRN (15:43)
[2017-06-18] MEDS ORDERED: Lanolin 100% Cream 7 GM Tube TOP PRN (15:43)
[2017-06-18] MEDS ORDERED: Morphine 4 MG/ML Syringe IVPUSH PRN (15:43)
[2017-06-18] MEDS ORDERED: ePHEDrine 50 MG/ML SDV IVPUSH PRN (15:43)
[2017-06-18] MEDS ORDERED: Magnesium Sulfate/Water 2 GM in Premix Bag 1 BAG IV SCH (15:43)
[2017-06-18] MEDS ORDERED: Montelukast 10 MG Tab PO PRN (15:43)
[2017-06-18] MEDS ORDERED: Formoterol/Mometasone 200-5 MCG 8.8 GM Inhaler IH PRN (15:43)
[2017-06-18] MEDS ORDERED: Cyclobenzaprine 10 MG Tab PO PRN (15:43)
[2017-06-18] MEDS ORDERED: Acetaminophen/HYDROcodone 325-5 MG Tab PO PRN (15:43)
[2017-06-18] MEDS ORDERED: Famotidine 20 MG Tab PO PRN (15:43)
[2017-06-18] MEDS ORDERED: Albuterol 6.7 GM Inhaler INH PRN (15:43)
[2017-06-18] MEDS ORDERED: Magnesium Sulfate/Water 40 GM/1,000 ML BAG IV SCH (16:45)
[2017-06-18] MEDS: Simethicone 80 MG Tab.Chew PO SCH ×2 (19:46→23:48)
[2017-06-18] MEDS: diphenhydrAMINE 50 MG/ML SDV IVPUSH PRN (20:02)
[2017-06-18] MEDS ORDERED: Bupivacaine 0.25% 10 ML SDV ONE (22:22)
[2017-06-19] MEDS: Acetaminophen/HYDROcodone 325-5 MG Tab PO PRN ×4 (02:28→19:44)
[2017-06-19] MEDS: Prenatal Multivitamin with Calcium/Folic Acid/Iron Tab PO SCH (08:10)
[2017-06-19] MEDS: Simethicone 80 MG Tab.Chew PO SCH ×3 (08:10→19:30)
[2017-06-19] MEDS: diphenhydrAMINE 50 MG/ML SDV IVPUSH PRN (10:43)
--- NOTE | 2017-06-19 10:52 | PCM.SN ---
- Free Text/Narrative Note: note Nuzhat is postoperative day #1 from emergent section for nonreassuring heart tones in the setting of recurrent late decelerations and remote from delivery with preeclampsia with severe features by elevated blood pressures requiring IV treatment. She is overall doing well. She reports that her pain is being moderately controlled with [place]. She is unable to take ibuprofen due to an allergy. She reports minimal vaginal bleeding. Tolerated small amount of a regular diet but began having epigastric pain that resolved after eating. She has a Calderon catheter in place. Denies passing flatus. She is breast-feeding with minimal amount of difficulty. Denies any bleeding from the incision. Ambulated this morning with minimal difficulty but was moving very slowly. Objective Temp: 36.6 Heart rate: 60s-90s (most recent 99) Blood pressure: 120s-170s/70s-110s (Most recent 153/88) Respiratory rate: 15-22 (most recent 18) O2 sat 97% on room air Gen.: No acute distress, alert and oriented Lungs: Clear to auscultation bilaterally Heart: Regular rate and rhythm Abdomen: Soft, minimal appropriate tenderness, nondistended, fundus is at the umbilicus, firm and nontender, incision healing well with Prineo dressing in place, small amount of blood on left side of incision, no purulent discharge, no erythema or tenderness Extremities: 2+ edema in lower extremities to knees bilaterally, 2+ bilateral biceps reflexes Assessment/plan 22-year-old status post emergent section for nonreassuring heart tones postoperative day #1 with recurrence with severe features continuing on magnesium until 24 hours status post delivery 1. Routine postoperative care 2. Continue [place] with when necessary IV medications for pain control 3. Continue magnesium sulfate IV until 1320 today for seizure prophylaxis, continue to check blood pressures every hour while on magnesium. Once discontinued and made space vital signs out to every 4 hours or as needed 4. Continue assistance with breast-feeding as needed 5. Encourage ambulation 6. Will change famotidine to scheduled twice a day and add pantoprazole for acid reflux, patient reports that she was taking medication for acid reflux until about a month ago when she ran out of her medication 7. Plan for patient to be discharged home likely on postop day #3 or 4 Job Babb M.D. 10:33 AM 06/19/17
[2017-06-19] MEDS: Pantoprazole 40 MG Tab.CR PO SCH (11:40)
[2017-06-19] MEDS: NIFEdipine 30 MG Tab.ER PO SCH (11:40)
[2017-06-19] MEDS ORDERED: guaiFENesin/Dextromethorphan 100-10 MG/5 ML Soln 5 ML Cup PO PRN (14:41)
--- NOTE | 2017-06-19 20:57 | PCM48HPAN ---
Post Anesthesia Note - EVALUATION WITHIN 48HRS OF ANESTHETIC Vital Signs in Normal Range: Yes Patient Participated in Evaluation: Yes Respiratory Function Stable: Yes Airway Patent: Yes Cardiovascular Function Stable: Yes Hydration Status Stable: Yes Pain Control Satisfactory: Yes Nausea and Vomiting Control Satisfactory: Yes Mental Status Recovered: Yes
[2017-06-19] MEDS ORDERED: Lactated Ringers 1,000 ML IV ONE (21:17)
[2017-06-20] MEDS: Acetaminophen/HYDROcodone 325-5 MG Tab PO PRN ×2 (00:23→12:12)
[2017-06-20] MEDS: Docusate Sodium 100 MG Cap PO PRN ×3 (00:25→21:00)
[2017-06-20] MEDS: Simethicone 80 MG Tab.Chew PO SCH ×5 (00:26→21:01)
[2017-06-20] MEDS ORDERED: Lactated Ringers 1,000 ML IV SCH (01:00)
[2017-06-20] MEDS: Famotidine 20 MG Tab PO SCH ×3 (08:38→21:00)
[2017-06-20] MEDS: NIFEdipine 30 MG Tab.ER PO SCH (09:38)
--- NOTE | 2017-06-20 09:46 | PCM.SN ---
- Free Text/Narrative Note: note Nuzhat is postoperative day #2 from emergent section for nonreassuring heart tones in the setting of recurrent late decelerations and remote from delivery with preeclampsia with severe features by elevated blood pressures requiring IV treatment. She is overall doing well and improving from yesterday. She reports that her pain is being controlled with [place] and reports that she is just having some abdominal soreness around the incision. She is unable to take ibuprofen due to an allergy. She reports minimal vaginal bleeding. Tolerating a regular diet. She is voiding without difficulty. Denies passing flatus but feels like her bowels are starting to move. She is breast-feeding without difficulty. Denies any bleeding from the incision. Emulating without difficulty. Objective Temp: 36.7C Heart rate: 80s-120s (most recent 88) Blood pressure: 120s-150s/80s-100s (Most recent 157/83) Respiratory rate: 16-24 O2 sat 98% on room air Gen.: No acute distress, alert and oriented Lungs: Clear to auscultation bilaterally Heart: Regular rate and rhythm Abdomen: Soft, minimal appropriate tenderness, nondistended, fundus is at the umbilicus, firm and nontender, incision healing well with Prineo dressing in place, no bleeding or discharge, no erythema or tenderness Extremities: 1+ edema in lower extremities to knees bilaterally, 2+ bilateral patellar reflexes Assessment/plan 22-year-old status post emergent section for nonreassuring heart tones postoperative day #2 with recurrence with severe features s/p magnesium until 24 hours status post delivery * Routine postoperative care * Continue [place] with when necessary IV medications for pain control * S/p magnesium sulfate IV for 24 hours . Continue close monitoring of blood pressures while admitted. * Patient with continued elevated blood pressures on nifedipine 30 mg XL, will transition patient to labetalol 300 mg twice a day due to her mild tachycardia overnight and heart rates into the 80s and 90s * Continue with breast-feeding * Patient with mild tachycardia overnight up to the 120s, resolved with 1 L fluid bolus, suspect that this was due to dehydration and patient was continued on IV fluids throughout the night. Patient to increase fluid intake throughout the day today * Continue famotidine to scheduled twice a day and pantoprazole daily for acid reflux * Plan for patient to be discharged home on postop day #3 or 4 Job Babb M.D. 10:18 AM 06/20/17
[2017-06-20] MEDS: Labetalol 100 MG Tab PO SCH ×2 (09:53→21:01)
[2017-06-20] MEDS: Prenatal Multivitamin with Calcium/Folic Acid/Iron Tab PO SCH (09:53)
[2017-06-20] MEDS: Pantoprazole 40 MG Tab.CR PO SCH (09:53)
[2017-06-21] MEDS: Simethicone 80 MG Tab.Chew PO SCH (09:16)
[2017-06-21] MEDS: Labetalol 100 MG Tab PO SCH (09:16)
[2017-06-21] MEDS: Prenatal Multivitamin with Calcium/Folic Acid/Iron Tab PO SCH (09:16)
[2017-06-21] MEDS: Pantoprazole 40 MG Tab.CR PO SCH (09:16)
[2017-06-21] MEDS: Famotidine 20 MG Tab PO SCH (09:18)
--- NOTE | 2017-06-21 10:45 | PCM.SN ---
- Free Text/Narrative Note: note Nuzhat is postoperative day #3 from emergent section for nonreassuring heart tones in the setting of recurrent late decelerations and remote from delivery with preeclampsia with severe features by elevated blood pressures requiring IV treatment. She is overall doing well. She reports that her pain is being controlled with [place]. She is unable to take ibuprofen due to an allergy. She reports minimal vaginal bleeding. Tolerating a regular diet. She is voiding without difficulty. Passing flatus. She is breast-feeding without difficulty. Denies any bleeding from the incision. Ambulating without difficulty. Objective Temp: 37.2C Heart rate: 80s-100s (most recent 84) Blood pressure: 120s-150s/60s-90s (Most recent 139/76) Respiratory rate: 14-18 O2 sat 97% on room air Gen.: No acute distress, alert and oriented Lungs: Clear to auscultation bilaterally Heart: Regular rate and rhythm Abdomen: Soft, minimal appropriate tenderness, nondistended, fundus at the umbilicus, firm and nontender, incision healing well with Prineo dressing in place, no bleeding or discharge, no erythema or tenderness Extremities: 1+ edema in lower extremities to ankels bilaterally, 2+ bilateral biceps reflexes Assessment/plan 22-year-old status post emergent section for nonreassuring heart tones postoperative day #3 with recurrence with severe features s/p magnesium until 24 hours status post delivery * Routine postoperative care * Continue [place] with when necessary IV medications for pain control * S/p magnesium sulfate IV for 24 hours . Continue close monitoring of blood pressures while admitted. * Continue labetalol 300 mg twice a day * Continue with breast-feeding * Continue famotidine to scheduled twice a day and pantoprazole daily for acid reflux * Patient to be discharged home today Job Babb M.D. 10:41 AM 06/21/17
--- NOTE | 2017-06-21 10:56 | PCM.DCSUM1 ---
Discharge Summary - Hospital Course Free Text/Narrative:: The patient was seen in labor and delivery room 4 and discussed the findings on monitoring that showed recurrent late decelerations and discussed with her that due to her being remote from delivery with her cervix dilated only to 3 cm and this being her first that the best course of action would be to proceed with section. The risks, benefits and complications were discussed with the patient. The patient desired to proceed with section , appropriate surgical consents were signed. The patient was taken to operating room 1, identified as Nuzhat Garcia and the procedure verified as section. A Time Out was held and the above information confirmed. The patient was prepped and draped in the usual sterile manner with a leftward tilt. A Calderon catheter was inserted. After epidural anesthesia was found to be adequate, a Pfannenstiel skin incision was made and carried down through the subcutaneous tissue to the fascia with the scapel. A fascial incision was made and extended transversely with Hciks scissors. The superior aspect of the fascia was grasped with Yodit clamps and tented upwards, the fascia was from the underlying rectus muscle bluntly and sharply with Hicks scissors. Attention was then turned to the inferior aspect of the fascia in similar fashion and the rectus muscle was dissected off bluntly and sharply with Hicks scissors. The peritoneum was identified and entered bluntly. The bladder blade was inserted and the lower uterine segment was identified. A low transverse uterine incision was made sharply with a scalpel and extended laterally bluntly. The 's head was brought to the uterine incision, the bladder blade was removed and the infant was delivered atraumatically. A live male was delivered in vertex position at 1320, wt of 4 lbs. 7 oz., APGARS 8 & 8. The nose and mouth were suctioned with bulb suction, cord was clamped and cut and was transferred to the awaiting wellness ambassador, Dr. Kowalski. The placenta was removed intact and appeared normal with a three vessel cord. The uterus was exteriorized. The uterine incision was closed with a running locked suture of 0 vicryl. A second suture of 0 Vicryl was used to obtain excellent hemostasis. The uterus, tubes and ovaries appeared normal. The uterus was returned into the abdominal cavity. The hysterotomy was noted to remain hemostatic inside the abdominal cavity. The fascia was noted to be hemostatic and the fascia was then reapproximated with running sutures of 1 PDS. The subcutaneous tissue was then closed with a running suture of 2-0 chromic. The skin was reapproximated with 4-0 Monocryl and covered with a Prineo dressing. HPI Initial Comments: The patient was seen in labor and delivery room 4 and discussed the findings on monitoring that showed recurrent late decelerations and discussed with her that due to her being remote from delivery with her cervix dilated only to 3 cm and this being her first that the best course of action would be to proceed with section. The risks, benefits and complications were discussed with the patient. The patient desired to proceed with section , appropriate surgical consents were signed. The patient was taken to operating room 1, identified as Nuzhat Garcia and the procedure verified as section. A Time Out was held and the above information confirmed. The patient was prepped and draped in the usual sterile manner with a leftward tilt. A Calderon catheter was inserted. After epidural anesthesia was found to be adequate, a Pfannenstiel skin incision was made and carried down through the subcutaneous tissue to the fascia with the scapel. A fascial incision was made and extended transversely with Hicks scissors. The superior aspect of the fascia was grasped with Yodit clamps and tented upwards, the fascia was from the underlying rectus muscle bluntly and sharply with Hicks scissors. Attention was then turned to the inferior aspect of the fascia in similar fashion and the rectus muscle was dissected off bluntly and sharply with Hicks scissors. The peritoneum was identified and entered bluntly. The bladder blade was inserted and the lower uterine segment was identified. A low transverse uterine incision was made sharply with a scalpel and extended laterally bluntly. The infant's head was brought to the uterine incision, the bladder blade was removed and the was delivered atraumatically. A live male was delivered in vertex position at 1320, wt of 4 lbs. 7 oz., APGARS 8 & 8. The nose and mouth were suctioned with bulb suction, cord was clamped and cut and infant was transferred to the awaiting wellness ambassador, Dr. Kowalski. The placenta was removed intact and appeared normal with a three vessel cord. The uterus was exteriorized. The uterine incision was closed with a running locked suture of 0 vicryl. A second suture of 0 Vicryl was used to obtain excellent hemostasis. The uterus, tubes and ovaries appeared normal. The uterus was returned into the abdominal cavity. The hysterotomy was noted to remain hemostatic inside the abdominal cavity. The fascia was noted to be hemostatic and the fascia was then reapproximated with running sutures of 1 PDS. The subcutaneous tissue was then closed with a running suture of 2-0 chromic. The skin was reapproximated with 4-0 Monocryl and covered with a Prineo dressing. Brief History: The patient was seen in labor and delivery room 4 and discussed the findings on monitoring that showed recurrent late decelerations and discussed with her that due to her being remote from delivery with her cervix dilated only to 3 cm and this being her first that the best course of action would be to proceed with section. The risks, benefits and complications were discussed with the patient. The patient desired to proceed with section, appropriate surgical consents were signed. The patient was taken to operating room 1, identified as Nuzhat Garcia and the procedure verified as section. A Time Out was held and the above information confirmed. The patient was prepped and draped in the usual sterile manner with a leftward tilt. A Calderon catheter was inserted. After epidural anesthesia was found to be adequate, a Pfannenstiel skin incision was made and carried down through the subcutaneous tissue to the fascia with the scapel. A fascial incision was made and extended transversely with Hicks scissors. The superior aspect of the fascia was grasped with Yodit clamps and tented upwards , the fascia was from the underlying rectus muscle bluntly and sharply with Hicks scissors. Attention was then turned to the inferior aspect of the fascia in similar fashion and the rectus muscle was dissected off bluntly and sharply with Hicks scissors. The peritoneum was identified and entered bluntly. The bladder blade was inserted and the lower uterine segment was identified. A low transverse uterine incision was made sharply with a scalpel and extended laterally bluntly. The 's head was brought to the uterine incision, the bladder blade was removed and the was delivered atraumatically. A live male infant was delivered in vertex position at 1320, wt of 4 lbs. 7 oz., APGARS 8 & 8. The nose and mouth were suctioned with bulb suction, cord was clamped and cut and was transferred to the awaiting wellness ambassador, Dr. Kowalski. The placenta was removed intact and appeared normal with a three vessel cord. The uterus was exteriorized. The uterine incision was closed with a running locked suture of 0 vicryl. A second suture of 0 Vicryl was used to obtain excellent hemostasis. The uterus, tubes and ovaries appeared normal. The uterus was returned into the abdominal cavity. The hysterotomy was noted to remain hemostatic inside the abdominal cavity. The fascia was noted to be hemostatic and the fascia was then reapproximated with running sutures of 1 PDS. The subcutaneous tissue was then closed with a running suture of 2-0 chromic. The skin was reapproximated with 4-0 Monocryl and covered with a Prineo dressing. - Discharge Data Discharge Date: 06/21/17 Discharge Disposition: Home, Self-Care 01 Condition: Good - Discharge Diagnosis/Problem(s) (1) delivery due to maternal disorder, delivered, current hospitalization SNOMED Code(s): 867159852 ICD Code: O99.89 - OTH DISEASES AND CONDITIONS COMPL PREG/CHLDBRTH; O82 - ENCOUNTER FOR DELIVERY WITHOUT INDICATION Status: Acute Current Visit: Yes (2) Severe pre-eclampsia SNOMED Code(s): 18822621 ICD Code: O14.10 - SEVERE PRE-ECLAMPSIA, UNSPECIFIED TRIMESTER Status: Acute Current Visit: Yes (3) Obesity affecting SNOMED Code(s): 827164632392 ICD Code: O99.210 - OBESITY COMPLICATING , UNSPECIFIED TRIMESTER Status: Acute Current Visit: Yes (4) GERD (gastroesophageal reflux disease) SNOMED Code(s): 991357086 ICD Code: K21.9 - GASTRO-ESOPHAGEAL REFLUX DISEASE WITHOUT ESOPHAGITIS Status: Acute Current Visit: No - Patient Summary/Data Operative Procedure(s) Performed: Primary section with double layer closure of hysterotomy Complications: None Consults: Consultations 06/18/17 15:43 Consult to Case Management [CONS] Routine Hospital Course: The patient was seen in labor and delivery room 4 and discussed the findings on monitoring that showed recurrent late decelerations and discussed with her that due to her being remote from delivery with her cervix dilated only to 3 cm and this being her first that the best course of action would be to proceed with section. The risks, benefits and complications were discussed with the patient. The patient desired to proceed with section , appropriate surgical consents were signed. The patient was taken to operating room 1, identified as Nuzhat Garcia and the procedure verified as section. A Time Out was held and the above information confirmed. The patient was prepped and draped in the usual sterile manner with a leftward tilt. A Calderon catheter was inserted. After epidural anesthesia was found to be adequate, a Pfannenstiel skin incision was made and carried down through the subcutaneous tissue to the fascia with the scapel. A fascial incision was made and extended transversely with Hicks scissors. The superior aspect of the fascia was grasped with Yodit clamps and tented upwards, the fascia was from the underlying rectus muscle bluntly and sharply with Hicks scissors. Attention was then turned to the inferior aspect of the fascia in similar fashion and the rectus muscle was dissected off bluntly and sharply with Hikcs scissors. The peritoneum was identified and entered bluntly. The bladder blade was inserted and the lower uterine segment was identified. A low transverse uterine incision was made sharply with a scalpel and extended laterally bluntly. The infant's head was brought to the uterine incision, the bladder blade was removed and the infant was delivered atraumatically. A live male infant was delivered in vertex position at 1320, wt of 4 lbs. 7 oz., APGARS 8 & 8. The nose and mouth were suctioned with bulb suction, cord was clamped and cut and infant was transferred to the awaiting wellness ambassador, Dr. Kowalski. The placenta was removed intact and appeared normal with a three vessel cord. The uterus was exteriorized. The uterine incision was closed with a running locked suture of 0 vicryl. A second suture of 0 Vicryl was used to obtain excellent hemostasis. The uterus, tubes and ovaries appeared normal. The uterus was returned into the abdominal cavity. The hysterotomy was noted to remain hemostatic inside the abdominal cavity. The fascia was noted to be hemostatic and the fascia was then reapproximated with running sutures of 1 PDS. The subcutaneous tissue was then closed with a running suture of 2-0 chromic. The skin was reapproximated with 4-0 Monocryl and covered with a Prineo dressing. She was continued on magnesium for 24 hours postdelivery for seizure prophylaxis. On postop day #1 she continued to have elevated blood pressures into the 150s to 160s/80s to 110s. She was started on nifedipine 30 mg XL for blood pressure control. On postoperative day #2 she continued to have several elevated blood pressures with tachycardia and she was changed from nifedipine to labetalol 300 mg by mouth twice a day. She was able to get much better control of her blood pressures on this dose. On postop day #1 she was doing well and meeting all postop milestones including tolerating regular diet, ambulating without difficulty, and her pain was able to be controlled with oral medications. She was breast-feeding without difficulty. She was able to void without difficulty on postop day #1 after her catheter was removed. She was passing flatus on postoperative day #3. She desired to be discharged home on postop day #3. She will follow-up in the clinic for a blood pressure check on 06/24/17, or 06/27/17. She will follow up with Dr. Siegel's office for her postop check in 2 weeks. - Patient Instructions Diet: Regular Diet as Tolerated Activity: As Tolerated, No Lifting Over 25 Pounds Driving: Do Not Drive (While on narcotic pain medications) Showering/Bathing: May Shower Wound/Incision Care: Keep Operative Site/Wound Site Clean and Dry Notify Provider of: Fever, Increased Pain, Swelling and Redness, Drainage, Nausea and/or Vomiting - Discharge Plan Prescriptions/Med Rec: Acetaminophen/HYDROcodone [[place] 325-5 MG] 1 - 2 tab PO Q6H PRN #30 tablet PRN Reason: Pain Famotidine [Pepcid] 20 mg PO BID #60 tablet Labetalol [Normodyne] 300 mg PO BID #60 tablet Home Medications: Home Meds Albuterol Sulfate [Proair Hfa] 8.5 gm IH Q6H PRN 04/12/16 [History] EPINEPHrine [Epipen] 0.3 mg IM ASDIRECTED 04/12/16 [History] Montelukast [Singulair] 10 mg PO BEDTIME PRN 04/12/16 [History] Loratadine [Claritin] 10 mg PO DAILY PRN 06/18/16 [History] Ondansetron [Zofran ODT] 4 mg PO Q6H #10 tab.dis 09/06/16 [Rx] PNV95/Ferrous Fumarate/FA [ Tablet] 1 tab PO DAILY 02/26/17 [History] Capsaicin 0.035 applic TOP ASDIRECTED PRN 06/17/17 [History] Cyclobenzaprine [Flexeril] 10 mg PO TID PRN 06/17/17 [History] Esomeprazole Magnesium [Nexium] 40 mg PO DAILY 06/17/17 [History] Fluticasone Propionate [Flonase] 1 gm NASBOTH DAILY 06/17/17 [History] Fluticasone/Salmeterol [Advair Diskus 100-50] 1 puff PO BID PRN 06/17/17 [ History] Nystatin 1 applic TOP TID PRN 06/17/17 [History] Triamcinolone Acetonide [IJD: Triamcinolone Acetonide 0.1% Crm] 0.025 applic TOP ASDIRECTED PRN 06/17/17 [History] Acetaminophen/HYDROcodone [[place] 325-5 MG] 1 - 2 tab PO Q6H PRN #30 tablet 06/21 [Rx] Docusate Sodium [Colace] 100 mg PO Q12H PRN cap 06/21/17 [Rx] Famotidine [Pepcid] 20 mg PO BID #60 tablet 06/21/17 [Rx] Labetalol [Normodyne] 300 mg PO BID #60 tablet 06/21/17 [Rx] Lanolin [Lansinoh HPA] 1 applic TOP ASDIRECTED PRN tube 06/21/17 [Rx] Patient Handouts: Smoking Hazards, Hypertension During , [id number] , Delivery, Care After, Smoking Cessation, Tips for Success, Challenges and Solutions Referrals: Elba Siegel MD [Physician] - 06/27/17 11:15 am (Follow up on Tuesday () or Tuesday (06/27/17) for a blood pressure check and then follow up in 2 weeks for routine postop follow up.) - Discharge Summary/Plan Comment DC Time >30 min.: No - Patient Data Vitals - Most Recent: Last Vital Signs Temp 37.2 C 06/21/17 07:39 Pulse 84 06/21/17 09:16 Resp 16 06/21/17 07:39 BP 139/76 06/21/17 09:16 Pulse Ox 97 06/21/17 07:39 Weight - Most Recent: 105.687 kg I&O - Last 24 hours: Intake & Output 06/20/17 06/21/17 06/21/17 22:59 06:59 14:59 Intake Total 240 Balance 240 Med Orders - Current: Current Medications Hydrocodone Bitart/Acetaminophen ([place] 325-5 Mg) 1 tab PO Q4H PRN PRN Reason: Pain (moderate 4-6) Hydrocodone Bitart/Acetaminophen ([place] 325-5 Mg) 2 tab PO Q4H PRN PRN Reason: Pain (moderate 4-6) Last Admin: 06/20/17 12:12 Dose: 2 tab Al Hydroxide/Mg Hydroxide (Mag-Al Plus) 30 ml PO Q8H PRN PRN Reason: Heartburn Albuterol (Proventil Hfa) 1 - 2 gm INH Q6H PRN PRN Reason: Shortness of Breath Calcium Gluconate (Calcium Gluconate) 1 gm IV ASDIRECTED PRN PRN Reason: respiratory distress Cyclobenzaprine HCl (Flexeril) 10 mg PO TID PRN PRN Reason: Muscle Spasm Diphenhydramine HCl (Benadryl) 25 mg IVPUSH Q6H PRN PRN Reason: Itching or Nausea Last Admin: 06/19/17 10:43 Dose: 25 mg Docusate Sodium (Colace) 100 mg PO Q12H PRN PRN Reason: Constipation Last Admin: 06/20/17 21:00 Dose: 100 mg Emollient Ointment (Lansinoh Hpa) 0 gm TOP ASDIRECTED PRN PRN Reason: Sore Nipples Ephedrine Sulfate (Ephedrine Sulfate) 5 mg IVPUSH SEECOMMENT PRN PRN Reason: Other Famotidine (Pepcid) 20 mg PO BID [facility] Last Admin: 06/21/17 09:18 Dose: 20 mg Flunisolide (Nasalide Nasal [place]) 0 ml NASBOTH BID [facility] Last Admin: 06/21/17 09:18 Dose: 2 spray Guaifenesin/Phenylephrine HCl (Robitussin Dm) 10 ml PO Q4H PRN PRN Reason: Cough Last Admin: 06/19/17 16:06 Dose: 10 ml Oxytocin/Lactated Ringer's (Pitocin In Lr 10 Units/1,000 Ml) 10 unit in 1,000 mls @ 100 mls/hr IV .CONTINUOUS [facility] Lactated Ringer's (Ringers, Lactated) 1,000 mls @ 75 mls/hr IV ASDIRECTED [facility] Last Admin: 06/19/17 02:00 Dose: 75 mls/hr Lactated Ringer's (Ringers, Lactated) 1,000 mls @ 125 mls/hr IV ASDIRECTED [facility] Last Admin: 06/20/17 00:57 Dose: 125 mls/hr Labetalol HCl (Normodyne) 300 mg PO BID [facility] Last Admin: 06/21/17 09:16 Dose: 300 mg Magnesium Hydroxide (Milk Of Magnesia) 30 ml PO BEDTIME PRN PRN Reason: Constipation Mometasone Furoate/Formoterol Fumar (Dulera 200-5 Mcg) 0 puff IH BID PRN PRN Reason: shortness of breath Montelukast Sodium (Singulair) 10 mg PO BEDTIME PRN PRN Reason: Allergies Morphine Sulfate (Morphine) 4 mg IVPUSH Q2H PRN PRN Reason: Pain (severe 7-10) Naloxone HCl (Narcan) 0.1 mg IVPUSH SEECOMMENT PRN PRN Reason: Respiratory Depression Ondansetron HCl (Zofran) 4 mg IV Q4H PRN PRN Reason: Nausea/Vomiting Pantoprazole Sodium (Protonix) 40 mg PO DAILY [facility] Last Admin: 06/21/17 09:16 Dose: 40 mg Prenat Multivit/[place]/Iron/Folic Ac ( Plus Iron) 1 each PO DAILY [facility] Last Admin: 06/21/17 09:16 Dose: 1 each Simethicone (Simethicone) 80 mg PO PCBED [facility] Last Admin: 06/21/17 09:16 Dose: 80 mg Sodium Chloride (Saline Flush) 10 ml FLUSH ASDIRECTED PRN PRN Reason: Keep Vein Open Discontinued Medications Acetaminophen (Tylenol) 650 mg PO Q6H PRN PRN Reason: Pain (Mild 1-3) and fever Bupivacaine HCl (Marcaine 0.5%) Confirm Administered Dose 30 ml .ROUTE .STK-MED ONE Stop: 06/18/17 12:24 Last Admin: 06/18/17 13:15 Dose: 20 ml Calcium Carbonate/Glycine (Tums) 1,000 mg PO Q2H PRN PRN Reason: Indigestion Calcium Gluconate (Calcium Gluconate) 1 gm IV ASDIRECTED PRN PRN Reason: respiratory distress Cefazolin Sodium (Ancef) Confirm Administered Dose 2 gm .ROUTE .STK-MED ONE Stop: 06/18/17 12:46 Citric Acid/Sodium Citrate (Bicitra Solution) 30 ml PO ONETIME ONE Stop: 06/18/17 12:28 Last Admin: 06/18/17 12:46 Dose: 30 ml Diphenhydramine HCl (Benadryl) 25 mg IVPUSH Q6H PRN PRN Reason: Pruritis Diphenhydramine HCl (Benadryl) 25 mg IVPUSH Q6H PRN PRN Reason: Pruritis Famotidine (Pepcid) 20 mg PO Q12H PRN PRN Reason: Heartburn Last Admin: 06/17/17 20:14 Dose: 20 mg Famotidine (Pepcid) 20 mg PO BID PRN PRN Reason: Heartburn Fentanyl (Sublimaze) 100 mcg EPIDUR Q3H PRN PRN Reason: Pain Last Admin: 06/18/17 11:02 Dose: 100 mcg Fentanyl (Sublimaze) 50 mcg IVPUSH Q5M PRN PRN Reason: Pain Last Admin: 06/18/17 15:00 Dose: 50 mcg Fentanyl/Bupivacaine HCl (Fentanyl/Bupivacaine/Ns 2 Mcg-0.125% 100 Ml) 100 ml EPIDUR ASDIRECTED [facility] Last Admin: 06/18/17 11:03 Dose: 100 ml Lactated Ringer's (Ringers, Lactated) 1,000 mls @ 100 mls/hr IV ASDIRECTED [facility] Last Infusion: 06/18/17 11:18 Dose: 200 mls/hr Oxytocin/Lactated Ringer's (Pitocin In Lr 10 Units/1,000 Ml) 10 unit in 1,000 mls @ 100 mls/hr IV .CONTINUOUS [facility] Magnesium Sulfate 4 gm/ Premix 100 mls @ 300 mls/hr IV ONETIME ONE Stop: 06/17/17 19:31 Last Admin: 06/17/17 19:45 Dose: 300 mls/hr Magnesium Sulfate 2 gm/ Premix 50 mls @ 300 mls/hr IV Q1H [facility] Last Admin: 06/17/17 21:59 Dose: Not Given Magnesium Sulfate (Magnesium Sulfate 40 Gm In Water 1000 Ml) 40 gm in 1,000 mls @ 50 mls/hr IV ASDIRECTED [facility] Last Admin: 06/17/17 20:14 Dose: 50 mls/hr Oxytocin/Lactated Ringer's (Pitocin In Lr 10 Units/1,000 Ml) 10 unit in 1,000 mls @ 12 mls/hr IV TITRATE [facility] DOLORES; 2 MUNITS/MIN PRN Reason: Protocol Last Titration: 06/18/17 11:22 Dose: 0 munits/min, 0 mls/hr Cefazolin Sodium/Dextrose 2 gm (/ Premix) 50 mls @ 100 mls/hr IV ONETIME ONE Stop: 06/18/17 12:56 Last Admin: 06/18/17 14:02 Dose: Not Given Lactated Ringer's (Ringers, Lactated) 1,000 mls @ 125 mls/hr IV ASDIRECTED [facility] DOLOR[facility] Last Admin: 06/17/17 20:14 Dose: 75 mls/hr Lactated Ringer's (Ringers, Lactated) 1,000 mls @ 125 mls/hr IV ASDIRECTED [facility] Stop: 06/18/17 23:42 Last Admin: 06/19/17 02:42 Dose: Not Given Magnesium Sulfate 2 gm/ Premix 50 mls @ 50 mls/hr IV .CONTINUOUS [facility] Stop: 06/19/17 13:20 Magnesium Sulfate (Magnesium Sulfate 40 Gm In Water 1000 Ml) 40 gm in 1,000 mls @ 50 mls/hr IV ASDIRECTED [facility] D[facility] Stop: 06/19/17 13:20 Last Admin: 06/18/17 19:45 Dose: 50 mls/hr Lactated Ringer's (Ringers, Lactated) 1,000 mls @ 1,000 mls/hr IV .BOLUS ONE Stop: 06/19/17 22:16 Last Admin: 06/19/17 21:48 Dose: 1,000 mls/hr Labetalol HCl (Normodyne) 20 mg IVPUSH ONETIME ONE PRN Reason: Protocol Stop: 06/17/17 19:08 Last Admin: 06/17/17 19:50 Dose: 20 mg Labetalol HCl (Normodyne) 20 mg IVPUSH ONETIME ONE PRN Reason: Protocol Stop: 06/18/17 05:22 Last Admin: 06/18/17 05:29 Dose: 20 mg Labetalol HCl (Normodyne) 40 mg IVPUSH ONETIME ONE PRN Reason: Protocol Stop: 06/18/17 05:55 Last Admin: 06/18/17 05:57 Dose: 40 mg Labetalol HCl (Normodyne) 20 mg IVPUSH ONETIME ONE PRN Reason: Protocol Stop: 06/18/17 10:25 Last Admin: 06/18/17 14:01 Dose: Not Given Labetalol HCl (Normodyne) 20 mg IVPUSH ONETIME ONE PRN Reason: Protocol Stop: 06/18/17 16:16 Last Admin: 06/18/17 16:04 Dose: 20 mg Labetalol HCl (Normodyne) 40 mg IVPUSH STAT ONE PRN Reason: Protocol Stop: 06/18/17 16:33 Last Admin: 06/18/17 16:43 Dose: 40 mg Lidocaine/Epinephrine (Xylocaine-Mpf 2%-Epi 1:200,000) Confirm Administered Dose 20 ml .ROUTE .STK-MED ONE Stop: 06/18/17 12:45 Meperidine HCl (Demerol) 12.5 mg IVPUSH ONETIME PRN PRN Reason: Shivering Metoclopramide HCl (Reglan) 10 mg IVPUSH ONETIME ONE Stop: 06/18/17 12:28 Last Admin: 06/18/17 12:46 Dose: 10 mg Misoprostol (Cytotec) 25 mcg VAG Q4H PRN PRN Reason: cervical ripening Misoprostol (Cytotec) Confirm Administered Dose 25 mcg .ROUTE .STK-MED ONE Stop: 06/17/17 20:20 Last Admin: 06/17/17 21:56 Dose: Not Given Misoprostol (Cytotec) 25 mcg VAG Q4H PRN PRN Reason: cervical ripening Last Admin: 06/18/17 04:56 Dose: 25 mcg Morphine Sulfate (Duramorph Pf) Confirm Administered Dose 10 mg .ROUTE .STK-MED ONE Stop: 06/18/17 12:42 Nifedipine (Procardia Xl) 30 mg PO DAILY [facility] Last Admin: 06/18/17 05:33 Dose: 30 mg Nifedipine (Procardia Xl) 30 mg PO DAILY [facility] Last Admin: 10/02/17 09:38 Dose: Not Given Ondansetron HCl (Zofran) 4 mg IVPUSH Q4H PRN PRN Reason: Nausea/Vomiting Ondansetron HCl (Zofran) 4 mg IVPUSH ONETIME PRN PRN Reason: Nausea/Vomiting Ondansetron HCl (Zofran) Confirm Administered Dose 4 mg .ROUTE .STK-MED ONE Stop: 06/18/17 12:42 Ondansetron HCl (Zofran) 4 mg IVPUSH ONETIME PRN PRN Reason: Nausea/Vomiting Oxytocin (Pitocin) Confirm Administered Dose 10 unit .ROUTE .STK-MED ONE Stop: 06/18/17 12:42 Oxytocin (Pitocin) Confirm Administered Dose 10 unit .ROUTE .[place] ONE Stop: 06/18/17 13:33 Pneumococcal Polyvalent Vaccine (Pneumovax 23) 0.5 ml IM .ONCE ONE Stop: 06/18/17 00:08 Sodium Chloride (Saline Flush) 10 ml FLUSH ASDIRECTED PRN PRN Reason: Keep Vein Open Sodium Chloride (Saline Flush) 10 ml FLUSH ASDIRECTED PRN PRN Reason: Keep Vein Open Sodium Chloride (Saline Flush) 10 ml FLUSH ASDIRECTED PRN PRN Reason: Keep Vein Open *Q Meaningful Use (DIS) - VTE *Q VTE Criteria *Q: - Stroke *Q Stroke Criteria *Q: - AMI *Q AMI Criteria *Q:
[2017-06-21 14:05] VITALS: BP 129/88
== END 2017-06-21 13:50 | disposition home or self-care (01) | DRG 766 ==
LOC: JD.OBCHECK 15:22 → JD.OB 15:22 → JD.OBCHECK 18:00 → OBSVTOIN 06-18 13:20 → JD.OB 06-18 13:20
PROVIDERS: ADMIT Obstetrics & Gynecology; ATTEND Obstetrics & Gynecology
PROC: 10D00Z1 Extraction of Products of Conception, Low, Open Approach (ICD-10-PCS; principal; 2017-06-18)
PROC: 3E0P7GC Introduction of Other Therapeutic Substance into Female Reproductive, Via Natural or Artificial Opening (ICD-10-PCS; 2017-06-18)
PROC: 00HU33Z Insertion of Infusion Device into Spinal Canal, Percutaneous Approach (ICD-10-PCS; 2017-06-18)
PROC: 3E0R3BZ Introduction of Anesthetic Agent into Spinal Canal, Percutaneous Approach (ICD-10-PCS; 2017-06-18)
DX: O14.14 Severe pre-eclampsia complicating childbirth (principal); O99.52 Diseases of the respiratory system complicating childbirth; J45.909 Unspecified asthma, uncomplicated; O76 Abnormality in fetal heart rate and rhythm complicating labor and delivery; Z3A.35 35 weeks gestation of pregnancy; Z37.0 Single live birth; O90.89 Other complications of the puerperium, not elsewhere classified; E86.0 Dehydration; Z88.8 Allergy status to other drugs, medicaments and biological substances; Z87.891 Personal history of nicotine dependence
CPT/HCPCS: 01967; 01968; 36415; 80053; 81001; 82565; 83615; 84450; 84460; 84520; 84550; 85025; 85027; 86850; 86900; 86901; 87653; 93005; 94762; A9270-GY; J0690; J1200; J2270; J2405; J2590; J2765; J3010; J3475; J7120

== ENCOUNTER 2018-03-11 17:04 | Emergency (ER) | payer MEDICAID ==
[2018-03-11 17:32] VITALS: BP 122/49
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
--- NOTE | 2018-03-13 07:48 | CR ---
Left wrist: Four views of the left wrist were obtained. Comparison: No prior left wrist exam. Joint spaces are preserved. No fracture, dislocation or other bony abnormality is seen. Impression: 1. No abnormality is identified on left wrist exam. Diagnostic code #1
== END 2018-03-11 18:15 | disposition home or self-care (01) ==
LOC: JD.ED 17:04
DX: S61.253A Open bite of left middle finger without damage to nail, initial encounter (principal); S63.602A Unspecified sprain of left thumb, initial encounter; K21.9 Gastro-esophageal reflux disease without esophagitis; Z88.8 Allergy status to other drugs, medicaments and biological substances; Z88.6 Allergy status to analgesic agent; Z79.899 Other long term (current) drug therapy; W54.0XXA Bitten by dog, initial encounter
CPT/HCPCS: 73110-26-LT; 73110-LT; 99283

== ENCOUNTER 2018-06-11 21:50 | Emergency (ER) | payer MEDICAID ==
--- NOTE | 2018-06-11 22:30 | EDM.PDOC ---
<Cosmo Bower - Last Filed: 06/12/18 00:33> ED HPI GENERAL MEDICAL PROBLEM - General Chief Complaint: Chest Pain Stated Complaint: CHEST PAINS Time Seen by Provider: 06/11/18 22:14 - Related Data Allergies Allergy/AdvReac Type Severity Reaction Status Date / Time aspirin Allergy Anaphylactic Verified 06/18/17 00:13 Shock ibuprofen Allergy Anaphylactic Verified 06/18/17 17:44 Shock pollen extracts Allergy Swelling Verified 06/18/17 00:13 soybeans Allergy Other Uncoded 06/18/17 00:13 Home Meds: Home Meds Albuterol Sulfate [Proair Hfa] 8.5 gm IH Q6H PRN 04/12/16 [History] EPINEPHrine [Epipen] 0.3 mg IM ASDIRECTED 04/12/16 [History] Montelukast [Singulair] 10 mg PO BEDTIME PRN 04/12/16 [History] Loratadine [Claritin] 10 mg PO DAILY PRN 06/18/16 [History] Cyclobenzaprine [Flexeril] 10 mg PO TID PRN 06/17/17 [History] Esomeprazole Magnesium [Nexium] 40 mg PO DAILY 06/17/17 [History] Fluticasone/Salmeterol [Advair Diskus 100-50] 1 puff PO BID PRN 06/17/17 [ History] Nystatin 1 applic TOP TID PRN 06/17/17 [History] Triamcinolone Acetonide [IJD: Triamcinolone Acetonide 0.1% Crm] 0.025 applic TOP ASDIRECTED PRN 06/17/17 [History] Acetaminophen/HYDROcodone [[place] 325-5 MG] 1 - 2 tab PO Q6H PRN #30 tablet 06/21 [Rx] Famotidine [Pepcid] 20 mg PO BID #60 tablet 06/21/17 [Rx] Labetalol [Normodyne] 300 mg PO BID #60 tablet 06/21/17 [Rx] Naproxen [Naprosyn] 500 mg PO Q12HR #20 tab 03/11/18 [Rx] Ondansetron [Zofran ODT] 4 mg PO Q6H PRN 06/11/18 [History] Course - Vital Signs Last Recorded V/S: Last Vital Signs Temp 98.4 F 06/12/18 00:32 Pulse 89 06/12/18 00:32 Resp 18 06/12/18 00:32 BP 134/74 06/12/18 00:32 Pulse Ox 98 06/12/18 00:32 - Orders/Labs/Meds Orders: Active Orders 24 hr Category Date Time Status EKG Documentation Completion [RC] STAT Care 06/11/18 22:15 Active Sodium Chloride 0.9% [Normal Saline] 100 ml Med 06/12/18 01:00 Active IV ASDIRECTED Medication Orders Sodium Chloride (Normal Saline) 100 mls @ 4 mls/sec IV ASDIRECTED MARIA DOLORES Labs: Laboratory Tests 06/11/18 06/11/18 06/11/18 Range/Units 22:45 22:45 22:45 WBC 5.26 (3.98-10.04) K/mm3 RBC 4.52 (3.98-5.22) M/mm3 Hgb 13.9 (11.2-15.7) gm/L Hct 42.4 (34.1-44.9) % MCV 93.8 (79.4-94.8) fl MCH 30.8 (25.6-32.2) pg MCHC 32.8 (32.2-35.5) g/dl RDW Std Deviation 43.6 (36.4-46.3) fL Plt Count 323 (182-369) K/mm3 MPV 9.6 (9.4-12.3) fl Neutrophils % (Manual) 49 (40-60) % Band Neutrophils % 0 (0-10) % Lymphocytes % (Manual) 42 H (20-40) % Atypical Lymphs % 2 % Monocytes % (Manual) 4 (2-10) % Eosinophils % (Manual) 0 L (0.7-5.8) % Basophils % (Manual) 3 H (0.1-1.2) Platelet Estimate Adequate Plt Morphology Comment Normal RBC Morph Comment Normal D-Dimer, Quantitative 0.86 H (0.19-0.50) mg/L Sodium 139 (136-145) mEq/L Potassium 3.6 (3.5-5.1) mEq/L Chloride 105 (98-107) mEq/L Carbon Dioxide 26 (21-32) mEq/L Anion Gap 11.6 (5-15) BUN 13 (7-18) mg/dL Creatinine 0.9 (0.55-1.02) mg/dL Est Cr Clr Drug Dosing 74.61 mL/min Estimated GFR (MDRD) > 60 (>60) mL/min BUN/Creatinine Ratio 14.4 (14-18) Glucose 94 (74-106) mg/dL Calcium 9.1 (8.5-10.1) mg/dL Total Bilirubin 0.5 (0.2-1.0) mg/dL AST 29 (15-37) U/L ALT 29 (14-59) U/L Alkaline Phosphatase 108 (46-116) U/L C-Reactive Protein 2.0 H* (<1.0) mg/dL Total Protein 7.7 (6.4-8.2) g/dl Albumin 3.9 (3.4-5.0) g/dl Globulin 3.8 gm/dL Albumin/Globulin Ratio 1.0 (1-2) HCG, Qual (NEGATIVE) 06/11/18 Range/Units 22:45 WBC (3.98-10.04) K/mm3 RBC (3.98-5.22) M/mm3 Hgb (11.2-15.7) gm/L Hct (34.1-44.9) % MCV (79.4-94.8) fl MCH (25.6-32.2) pg MCHC (32.2-35.5) g/dl RDW Std Deviation (36.4-46.3) fL Plt Count (182-369) K/mm3 MPV (9.4-12.3) fl Neutrophils % (Manual) (40-60) % Band Neutrophils % (0-10) % Lymphocytes % (Manual) (20-40) % Atypical Lymphs % % Monocytes % (Manual) (2-10) % Eosinophils % (Manual) (0.7-5.8) % Basophils % (Manual) (0.1-1.2) Platelet Estimate Plt Morphology Comment RBC Morph Comment D-Dimer, Quantitative (0.19-0.50) mg/L Sodium (136-145) mEq/L Potassium (3.5-5.1) mEq/L Chloride (98-107) mEq/L Carbon Dioxide (21-32) mEq/L Anion Gap (5-15) BUN (7-18) mg/dL Creatinine (0.55-1.02) mg/dL Est Cr Clr Drug Dosing mL/min Estimated GFR (MDRD) (>60) mL/min BUN/Creatinine Ratio (14-18) Glucose (74-106) mg/dL Calcium (8.5-10.1) mg/dL Total Bilirubin (0.2-1.0) mg/dL AST (15-37) U/L ALT (14-59) U/L Alkaline Phosphatase (46-116) U/L C-Reactive Protein (<1.0) mg/dL Total Protein (6.4-8.2) g/dl Albumin (3.4-5.0) g/dl Globulin gm/dL Albumin/Globulin Ratio (1-2) HCG, Qual Negative (NEGATIVE) Meds: Medications Generic Name Dose Route Start Last Admin Trade Name Freq PRN Reason Stop Dose Admin Sodium Chloride 100 mls @ 4 mls/sec 06/12/18 01:00 Normal Saline IV ASDIRECTED MARIA DOLORES Discontinued Medications Generic Name Dose Route Start Last Admin Trade Name Freq PRN Reason Stop Dose Admin Sodium Chloride 100 mls @ 4 mls/sec 06/11/18 23:45 06/12/18 00:47 Normal Saline IV 4 mls/sec ASDIRECTED MARIA DOLORES Administration Iopamidol 100 ml 06/11/18 23:51 06/11/18 23:56 Isovue-[email or web address] (76%) IVPUSH 06/11/18 23:52 100 ml ONETIME ONE Administration Iopamidol 40 ml 06/11/18 23:51 06/11/18 23:56 Isovue-370 (76%) IVPUSH 06/11/18 23:52 40 ml ONETIME ONE Administration Iopamidol 100 ml 06/11/18 23:56 06/12/18 00:02 Isovue-370 (76%) IVPUSH 06/11/18 23:57 Not Given ONETIME ONE Iopamidol 100 ml 06/12/18 00:33 06/12/18 00:37 Isovue-370 (76%) IVPUSH 06/12/18 00:34 100 ml ONETIME ONE Administration - Re-Assessments/Exams Free Text/Narrative Re-Assessment/Exam: 06/12/18 00:26 CT angiogram of the chest is read by [facility] as: Normal chest CTA. No pulmonary embolism. 06/12/18 00:30 Test results discussed with the patient. Based on the patient's history, physical examination, and lab tests, I think it most likely that the lower left sternal pain that the patient presents with is due to a muscle spasm, likely related to her recent coughing. I'm recommending [id number] ibuprofen as needed. Departure - Departure Time of Disposition: 00:30 Disposition: Home, Self-Care 01 Condition: Good Clinical Impression: Musculoskeletal chest pain Instructions: Chest Wall Pain, [id number] Referrals: PCP,None [Primary Care Provider] - Forms: ED Department Discharge Additional Instructions: You were seen in the emergency room for lower left chest pain. Workup in the ER included blood work, a chest x-ray, and a CT angiogram of her chest. Her entire workup was unremarkable. You do not have pneumonia. You do not have a blood clot in your lungs. Based on your history, physical examination, and test results, it is MOST LIKELY that the pain you are experiencing is due to a muscle spasm due to coughing. We recommend that you take [id number] ibuprofen, 2-3 tablets (400-600 mg) every 8 hours, with food, as needed for pain. If any other problems, please do not hesitate to return to the ER. - My Orders Last 24 Hours: My Active Orders 06/11/18 22:15 EKG Documentation Completion [RC] STAT 06/12/18 01:00 Sodium Chloride 0.9% [Normal Saline] 100 ml IV ASDIRECTED - Assessment/Plan Last 24 Hours: My Active Orders 06/11/18 22:15 EKG Documentation Completion [RC] STAT 06/12/18 01:00 Sodium Chloride 0.9% [Normal Saline] 100 ml IV ASDIRECTED <Manolo Tong - Last Filed: 06/12/18 20:03> ED HPI GENERAL MEDICAL PROBLEM - General Source of Information: Reports: Patient History Limitations: Reports: No Limitations - History of Present Illness INITIAL COMMENTS - FREE TEXT/NARRATIVE: Patient is a 23-year-old female who presents to the ED complaining of left lower sternal chest discomfort. Patient states the pain came on at 5:00 this evening while at work. Pain waxes and wanes in intensity but is constant in nature. Described as a dull ache/sharp worse with palpation and with taking a deep breath. She is not short of breath. She's had cold like symptoms with sinus congestion and runny nose. All her family members are sick with similar symptoms. Cough has been minimal nonproductive. There has been no documented fever. She denies any epigastric discomfort, Nausea/vomiting, Acid reflux, history of PE or DVT. She is currently on control. She does not smoke. She denies being . She offers no additional complaints or past medical history. 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: Psychiatric History: Reports: ADD Endocrine/Metabolic History: Reports: Obesity/BMI 30+ - Past Surgical History Cardiovascular Surgical History: Reports: Other (See Below) GI Surgical History: Reports: Cholecystectomy, EGD Female Surgical History: Reports: None Social & Family History - Family History Family Medical History: Noncontributory - Tobacco Use Smoking Status *Q: Never Smoker - Caffeine Use Caffeine Use: Reports: Soda Other Caffeine Use: rarely Caffeine Use Comment: 1 cup daily - Recreational Drug Use Recreational Drug Use: No - Living Situation & Occupation Living situation: Reports: Single, with Significant Other Occupation: Unemployed ED ROS GENERAL - Review of Systems Review Of Systems: ROS reveals no pertinent complaints other than HPI. ED EXAM, GENERAL - Physical Exam Exam: See Below Exam Limited By: No Limitations General Appearance: Alert, WD/WN, No Apparent Distress Eye Exam: Bilateral Eye: Normal Inspection Ears: Hearing Grossly Normal Nose: Normal Inspection Throat/Mouth: Normal Voice, No Airway Compromise Head: Atraumatic, Normocephalic Neck: Normal Inspection, Supple Respiratory/Chest: No Respiratory Distress, Lungs Clear, Normal Breath Sounds, No Accessory Muscle Use, Other (Tenderness noted along the left lower sternal border along the costochondral joint and the intercostal space. No swelling, rash, bruising noted. No bony abnormalities.) Cardiovascular: Normal Peripheral Pulses, Regular Rate, Rhythm GI/Abdominal: Normal Bowel Sounds, Soft, Non-Tender Back Exam: Normal Inspection Extremities: Normal Inspection, Normal Range of Motion, Non-Tender, No Pedal Edema, Normal Capillary Refill Neurological: Alert, Oriented, CN II-XII Intact, Normal Cognition, No Motor/ Sensory Deficits Psychiatric: Normal Affect, Normal Mood Skin Exam: Warm, Dry, Intact, Normal Color Course - Orders/Labs/Meds Orders: Active Orders 24 hr Category Date Time Status EKG Documentation Completion [RC] STAT Care 06/11/18 22:15 Active Sodium Chloride 0.9% [Normal Saline] 100 ml Med 06/12/18 01:00 Active IV ASDIRECTED Medication Orders Sodium Chloride (Normal Saline) 100 mls @ 4 mls/sec IV ASDIRECTED MARIA DOLORES Labs: Laboratory Tests 06/11/18 06/11/18 06/11/18 Range/Units 22:45 22:45 22:45 WBC 5.26 (3.98-10.04) K/mm3 RBC 4.52 (3.98-5.22) M/mm3 Hgb 13.9 (11.2-15.7) gm/L Hct 42.4 (34.1-44.9) % MCV 93.8 (79.4-94.8) fl MCH 30.8 (25.6-32.2) pg MCHC 32.8 (32.2-35.5) g/dl RDW Std Deviation 43.6 (36.4-46.3) fL Plt Count 323 (182-369) K/mm3 MPV 9.6 (9.4-12.3) fl Neutrophils % (Manual) 49 (40-60) % Band Neutrophils % 0 (0-10) % Lymphocytes % (Manual) 42 H (20-40) % Atypical Lymphs % 2 % Monocytes % (Manual) 4 (2-10) % Eosinophils % (Manual) 0 L (0.7-5.8) % Basophils % (Manual) 3 H (0.1-1.2) Platelet Estimate Adequate Plt Morphology Comment Normal RBC Morph Comment Normal D-Dimer, Quantitative 0.86 H (0.19-0.50) mg/L Sodium 139 (136-145) mEq/L Potassium 3.6 (3.5-5.1) mEq/L Chloride 105 (98-107) mEq/L Carbon Dioxide 26 (21-32) mEq/L Anion Gap 11.6 (5-15) BUN 13 (7-18) mg/dL Creatinine 0.9 (0.55-1.02) mg/dL Est Cr Clr Drug Dosing 74.61 mL/min Estimated GFR (MDRD) > 60 (>60) mL/min BUN/Creatinine Ratio 14.4 (14-18) Glucose 94 (74-106) mg/dL Calcium 9.1 (8.5-10.1) mg/dL Total Bilirubin 0.5 (0.2-1.0) mg/dL AST 29 (15-37) U/L ALT 29 (14-59) U/L Alkaline Phosphatase 108 (46-116) U/L C-Reactive Protein 2.0 H* (<1.0) mg/dL Total Protein 7.7 (6.4-8.2) g/dl Albumin 3.9 (3.4-5.0) g/dl Globulin 3.8 gm/dL Albumin/Globulin Ratio 1.0 (1-2) HCG, Qual (NEGATIVE) 06/11/18 Range/Units 22:45 WBC (3.98-10.04) K/mm3 RBC (3.98-5.22) M/mm3 Hgb (11.2-15.7) gm/L Hct (34.1-44.9) % MCV (79.4-94.8) fl MCH (25.6-32.2) pg MCHC (32.2-35.5) g/dl RDW Std Deviation (36.4-46.3) fL Plt Count (182-369) K/mm3 MPV (9.4-12.3) fl Neutrophils % (Manual) (40-60) % Band Neutrophils % (0-10) % Lymphocytes % (Manual) (20-40) % Atypical Lymphs % % Monocytes % (Manual) (2-10) % Eosinophils % (Manual) (0.7-5.8) % Basophils % (Manual) (0.1-1.2) Platelet Estimate Plt Morphology Comment RBC Morph Comment D-Dimer, Quantitative (0.19-0.50) mg/L Sodium (136-145) mEq/L Potassium (3.5-5.1) mEq/L Chloride (98-107) mEq/L Carbon Dioxide (21-32) mEq/L Anion Gap (5-15) BUN (7-18) mg/dL Creatinine (0.55-1.02) mg/dL Est Cr Clr Drug Dosing mL/min Estimated GFR (MDRD) (>60) mL/min BUN/Creatinine Ratio (14-18) Glucose (74-106) mg/dL Calcium (8.5-10.1) mg/dL Total Bilirubin (0.2-1.0) mg/dL AST (15-37) U/L ALT (14-59) U/L Alkaline Phosphatase (46-116) U/L C-Reactive Protein (<1.0) mg/dL Total Protein (6.4-8.2) g/dl Albumin (3.4-5.0) g/dl Globulin gm/dL Albumin/Globulin Ratio (1-2) HCG, Qual Negative (NEGATIVE) Meds: Medications Generic Name Dose Route Start Last Admin Trade Name Freq PRN Reason Stop Dose Admin Sodium Chloride 100 mls @ 4 mls/sec 06/12/18 01:00 Normal Saline IV ASDIRECTED MARIA DOLORES Discontinued Medications Generic Name Dose Route Start Last Admin Trade Name Freq PRN Reason Stop Dose Admin Sodium Chloride 100 mls @ 4 mls/sec 06/11/18 23:45 06/12/18 00:47 Normal Saline IV 4 mls/sec ASDIRECTED MARIA DOLORES Administration Iopamidol 100 ml 06/11/18 23:51 06/11/18 23:56 Isovue-370 (76%) IVPUSH 06/11/18 23:52 100 ml ONETIME ONE Administration Iopamidol 40 ml 06/11/18 23:51 06/11/18 23:56 Isovue-370 (76%) IVPUSH 06/11/18 23:52 40 ml ONETIME ONE Administration Iopamidol 100 ml 06/11/18 23:56 06/12/18 00:02 Isovue-370 (76%) IVPUSH 06/11/18 23:57 Not Given ONETIME ONE Iopamidol 100 ml 06/12/18 00:33 06/12/18 00:37 Isovue-370 (76%) IVPUSH 06/12/18 00:34 100 ml ONETIME ONE Administration - Re-Assessments/Exams Free Text/Narrative Re-Assessment/Exam: Wells Criteria for PE Low risk group: 1.3% chance of PE in an ED population. Patient has pain over the costrochondral joint to the left lower chest. Pain is pin point. No epigastric pain. I believe this is related to costochondritis. She is getting over a viral upper respiratory infection. VSS. She is not short of breath. SPO2 100% on room air. There is no findings concerning for blood clot to the lower extremities with palpation. EKG sinus rhythm rate of 78. This showed a pattern of S1,Q3, and T3. She is on control. Pain has been present for 1 month. I elected to rule out PE. Blood work and Chest x-ray will be obtained as well. CBC negative. D-dimer 0.86. CMP normal. CRP 2.0. HCG negative. CTA of the chest obtained to rule out PE. - My Orders Last 24 Hours: My Active Orders 06/11/18 22:15 EKG Documentation Completion [RC] STAT 06/12/18 01:00 Sodium Chloride 0.9% [Normal Saline] 100 ml IV ASDIRECTED - Assessment/Plan Last 24 Hours: My Active Orders 06/11/18 22:15 EKG Documentation Completion [RC] STAT 06/12/18 01:00 Sodium Chloride 0.9% [Normal Saline] 100 ml IV ASDIRECTED
[2018-06-11] MEDS ORDERED: Iopamidol 755 Mg/ML 100 ML Bottle IVPUSH ONE ×2 (23:51→23:56)
[2018-06-11] MEDS ORDERED: Iopamidol 755 MG/ML 50 ML Bottle IVPUSH ONE (23:51)
[2018-06-11] MEDS: Sodium Chloride 0.9% 100 ML IV SCH (23:56)
[2018-06-12 00:32] VITALS: BP 134/74
[2018-06-12] MEDS ORDERED: Iopamidol 755 Mg/ML 100 ML Bottle IVPUSH ONE (00:33)
[2018-06-12] MEDS: Sodium Chloride 0.9% 100 ML IV SCH (00:47)
[2018-06-12] MEDS ORDERED: Sodium Chloride 0.9% 100 ML IV SCH (01:00)
--- NOTE | 2018-06-12 07:13 | CR ---
Chest: Portable view of the chest was obtained. Comparison: Prior chest x-ray of 09/08/16. Heart size and mediastinum are felt to be within normal limits for portable technique. Increased density is noted within the right chest most likely representing superficial opacity rather than actual parenchymal process. Lungs otherwise are clear. Bony structures are grossly intact. Impression: 1. Diffuse increased density within the right side of the chest most likely due to overlying artifact. 2. Nothing acute is otherwise seen on portable chest x-ray. Diagnostic code #2
--- NOTE | 2018-06-12 07:21 | CT ---
CT chest Technique: Multiple axial sections through the chest were obtained. Intravenous contrast was utilized. Study has been performed as a pulmonary angiogram protocol. Comparison: Prior chest x-ray of 09/08/16 is available, no prior chest CT. Findings: Pulmonary arteries are well-opacified. No filling defects are seen to indicate pulmonary embolism. Aorta shows no aneurysm or dissection. Mediastinum shows no hilar or mediastinal mass. No pericardial thickening is seen. Small portion of the visualized upper abdominal structures are within normal limits. Bone window settings were reviewed which appear within normal limits for the patient's age. Lung window settings showed no acute parenchymal change within either side of the chest. Surgical clips are seen from prior cholecystectomy. Impression: 1. No findings of pulmonary embolism. Nothing acute is seen on CT study of the chest. Diagnostic code #1 Agree with preliminary report issued by [employer] ([facility] preliminary report dictated on 06/12/18, 1:05 AM Central Time)
== END 2018-06-12 00:40 | disposition home or self-care (01) ==
LOC: JD.ED 21:50
DX: R07.89 Other chest pain (principal); E66.9 Obesity, unspecified; Z88.6 Allergy status to analgesic agent; Z91.018 Allergy to other foods; Z79.899 Other long term (current) drug therapy
CPT/HCPCS: 36415; 71045; 71275; 80053; 84703; 85007; 85027; 85379; 86140; 99285; J7030; Q9967; 99284